=== PATIENT | male | born 1980 | race Caucasian/White ===

== ENCOUNTER 2023-07-25 12:07 | Outpatient (RCR) | payer OTHER, SELFPAY | END 2023-07-25 23:59 | disposition home or self-care (01) | LOC: RPT 12:07 | PROVIDERS: ATTENDING PHYSICIAN Neurological Surgery; FAMILY PHYSICIAN Family Medicine | DX: M43.22 Fusion of spine, cervical region (principal); M54.12 Radiculopathy, cervical region; Z73.6 Limitation of activities due to disability | CPT/HCPCS: 97010; 97110; 97140; 97162 ==

== ENCOUNTER 2023-07-27 14:07 | Outpatient (RCR) | payer OTHER, SELFPAY | END 2023-07-27 23:59 | disposition home or self-care (01) | LOC: RPT 14:07 | PROVIDERS: ATTENDING PHYSICIAN Neurological Surgery; FAMILY PHYSICIAN Family Medicine | DX: Z47.89 Encounter for other orthopedic aftercare (principal); Z98.1 Arthrodesis status | CPT/HCPCS: 97010; 97110 ==

== ENCOUNTER 2023-08-19 18:28 | Emergency (ER) | payer OTHER, SELFPAY ==
[2023-08-19 18:30] VITALS: BP 146/109
[2023-08-19 19:26] VITALS: BMI 22.7
--- NOTE | 2023-08-19 19:29 | EDRN ---
Pt is having more and more spasms above C3-C6 fusion area. Fusion done Feb 07, 2023 at [facility]. Pt says he is now getting shooting pains into his arms and hands, sometimes into his back or feet depending on how he moves his neck. Today pt had
burning in L side of his face. Most of the shooting pains are on L side of pt's body. Earlier, pt noted numbness/tingling in heel of L foot. Past 2-3 days spasms are getting worse and he has had cracking/popping in his neck. No new issues with
bowel and bladder.
[2023-08-19 19:35] VITALS: BP 131/98
[2023-08-19] MEDS: DELTASONE 50 MG PO (21:24)
--- NOTE | 2023-08-19 21:37 | ED.GENMED ---
History of Present Illness
General
Chief Complaint: Back Pain
Source: patient
Exam Limitations: none
Time Seen by Provider: 08/19/23 20:44
Travel History
Have you had any contact with someone who has COVID-19?: No
Do you have any symptoms of coronavirus? Fever > 100 degrees, chills, cough, shortness of breath, sore throat, loss of taste or smell, muscle aches, or headache?: No
History of Present Illness
History of Present Illness:
43-year-old male presents with intermittent neck spasms with occasional electric shock sensations down the arms and legs. In January of last year he had an anterior fusion of C3-C5. He started developing the symptoms about a month afterwards. He
is trying to get a hold of the surgeon but has been unable to. He denies a fever. He takes diazepam and oxycodone at home through his pain management doctor. Symptoms worsened over the past 2 to 3 days. He had an x-ray done as an outpatient
recently. No bowel or bladder dysfunction. No perianal anesthesia
Past History
Past History
ED Past Medical History: Hyperthyroidism, Psychiatric (Major depressive disorder for which he takes no medications), Other (Chronic neck pain, patient states she has had cervical stenosis and herniations) and Other (Recently diagnosed B12 deficiency)
ED Past Surgical History: Other ( partial amputation of the finger on his hand , Hernia repair)
Social History
Tobacco: Vaping
Alcohol: None (lives with his parents and his 3 children)
Drug: Former user and Marijuana
Personal: Single
Living: with family
Employment: Not employed (applying for disability)
Family History
Family History: Negative Diabetes or Hypertension
Phy Exam
Physical Exam
Physical Exam:
General: Well-appearing male no acute respiratory distress
HEENT: Normocephalic atraumatic
Neurologic exam: Alert conversing appropriately. Normal reflexes to the upper extremities. Good strength to the lower extremities. Normal gait.
Musculoskeletal exam: Cervical spine nontender. Good range of motion all extremities
Skin is warm no rash
Course
Orders/Labs/Results
Orders:
Orders
08/19/23 21:13
Prednisone [Deltasone] 50 mg PO NOW STA
Vital Signs
Initial and Last Documented VS:
Initial Vital Signs
Temp Pulse Resp BP Pulse Ox
98.1 F 110 16 146/109 100
08/19/23 18:30 08/19/23 18:30 08/19/23 18:30 08/19/23 18:30 08/19/23 18:30
Last Documented Vital Signs
Temp Pulse Resp BP Pulse Ox
98.1 F 92 16 131/98 100
08/19/23 18:30 08/19/23 19:35 08/19/23 19:35 08/19/23 19:35 08/19/23 19:35
MDM/Problems Addressed
Differential Diagnosis Includes:
Patient with intermittent neck spasm and paresthesias. No red flags to suggest cauda equina no fever to suggest infectious source. He symptoms are ongoing. No indication for any emergent MRI at this point. He is on diazepam and oxycodone at
home. Will prescribe a course of prednisone. He has an appoint with his family doctor in about 4 days.
*Critical Care Note
Total Time (30-74mins, 75-104mins- exclusive of procedures): Not Applicable
ED Attending Note
-
Portions of this chart may have been created with voice recognition software.� Occasional wrong word or��sound alike� substitutions may have occurred due to the inherent limitations of voice recognition software.
Discharge Plan
Departure
Patient Disposition: Home (Routine Discharge)
Date of Disposition: 08/19/23
Time of Disposition: 21:39
Patient with high blood pressure during this ER visit?: No
Discharge Problem:
Paresthesia
Instructions: Radiculopathy (DC)
Prescriptions:
New
prednisone 10 mg Tablet
See Rx Instructions .ROUTE .COMPLEX Qty: 30 0RF
Rx Instructions:
Take By Mouth:
40 mg daily x3 days, 30 mg daily x3 days,
20 mg daily x3 days, 10 mg daily x3 days.
No Action
diazepam [Valium] 5 mg Tablet
10 mg PO TID
oxycodone 20 mg Tablet
20 mg PO Q4H
multivitamin Tablet
1 tab PO DAILY
cyanocobalamin (vitamin B-12) 1,000 mcg Tablet
1,000 mcg PO Q48H
Referrals:
Jose Tompkins, DO [Family Provider] -
Activity Restrictions/Additional Instructions:
Continue with your muscle relaxer and pain medicine. Use steroid as directed. Continue to follow-up with your doctors as planned
Interventions
Interventions:
*Risk Screen - Suicide Last Done: 08/19/23 18:30
*General Assessment Last Done: 08/19/23 19:26
*Neglect/Abuse Screening Last Done: 08/19/23 18:30
ED- Fall Risk Assessment Last Done: 08/19/23 19:29
*ED COVID-19 Vaccine History Last Done: 08/19/23 18:30
ED-Musculoskeletal Assessment Last Done: 08/19/23 19:42
== END 2023-08-19 21:50 | disposition home or self-care (01) ==
LOC: EMR 18:28
PROVIDERS: EMERGENCY PHYSICIAN Emergency Medicine; FAMILY PHYSICIAN Family Medicine
DX: R20.2 Paresthesia of skin (principal); M62.838 Other muscle spasm; R20.0 Anesthesia of skin; E05.90 Thyrotoxicosis, unspecified without thyrotoxic crisis or storm; F32.9 Major depressive disorder, single episode, unspecified; M54.2 Cervicalgia; G89.29 Other chronic pain; E53.8 Deficiency of other specified B group vitamins; F17.290 Nicotine dependence, other tobacco product, uncomplicated; Z98.1 Arthrodesis status; Z88.6 Allergy status to analgesic agent; Z91.048 Other nonmedicinal substance allergy status
CPT/HCPCS: 99283

== ENCOUNTER → 2023-09-14 08:16 | Outpatient (REF) | payer OTHER, SELFPAY | LOC: MRI 08:16 | PROVIDERS: ATTENDING PHYSICIAN Family Medicine | DX: G95.9 Disease of spinal cord, unspecified (principal) | CPT/HCPCS: 72156; A9575 ==

== ENCOUNTER 2023-10-06 11:47 | Emergency (ER) | payer OTHER, SELFPAY ==
[2023-10-06 11:51] VITALS: BP 147/94
--- NOTE | 2023-10-06 13:49 | ED.GENMED ---
History of Present Illness
<Chetna Montero PA-C - Last Filed: 10/06/23 17:51>
General
Chief Complaint: Musculo-Skeletal Complaint
Source: patient
Exam Limitations: none
Time Seen by Provider: 10/06/23 13:49
Nursing documentation reviewed up to this point in time: agreed with
Travel History
Have you had any contact with someone who has COVID-19?: No
Do you have any symptoms of coronavirus? Fever > 100 degrees, chills, cough, shortness of breath, sore throat, loss of taste or smell, muscle aches, or headache?: No
History of Present Illness
History of Present Illness:
This is a 43 y/o male with a PMH of cervical herniated disc presenting to the ER today with concerns of severe neck pain for the past few months. Patient states that he had surgery for cervical herniated disc back in January 2023. Patient states
that this operation helped relieve his symptoms for period of time, however his symptoms started again and persisted, and his recent MRI revealed a new C2-C3 herniated disc. Patient follows with Dr. Aponte as his spinal pain management
specialist. Patient has a cervical spine injection scheduled for next week on Monday. Patient states that however his pain has gotten so severe, that he cannot sleep at night and he cannot wait till his appointment next week. Patient states
bilateral upper extremity paresthesias, these are constant. Patient denies decreased strength. Patient also has intermittent dizziness and intermittent headaches but no new neurologic symptoms.
Past History
<Chetna Montero PA-C - Last Filed: 10/06/23 17:51>
Past History
ED Past Medical History: Hyperthyroidism, Psychiatric (Major depressive disorder for which he takes no medications), Other (Chronic neck pain, patient states she has had cervical stenosis and herniations) and Other (Recently diagnosed B12 deficiency)
ED Past Surgical History: Other ( partial amputation of the finger on his hand , Hernia repair)
Social History
Tobacco: Vaping
Alcohol: None (lives with his parents and his 3 children)
Drug: Former user and Marijuana
Personal: Single
Living: with family
Employment: Not employed (applying for disability)
Family History
Family History: Negative Diabetes or Hypertension
Review of Systems
<Chetna Montero PA-C - Last Filed: 10/06/23 17:51>
Review of Systems
All Other Systems: ROS reviewed and negative except as documented in HPI and ROS
Phy Exam
<Chetna Montero PA-C - Last Filed: 10/06/23 17:51>
Physical Exam
Physical Exam:
Vitals: Patient is well appearing, in no acute distress
General: Patient is well appearing, no acute distress
Skin: Warm and dry, no rashes or lesions
Head: Normocephalic, atraumatic
Neck: No carotid bruits, trachea midline, no cervical radiculopathy
Cardiac: Regular rate and rhythm, no murmurs
Pulm: Normal respiratory effort
Musculoskeletal: Tenderness to palpation at the cervical spine and para cervical muscles. Full ROM of cervical spine.
Neuro: Sensation intact and equal in b/l upper extremities. Strength 5/5 in bilateral upper extremities. CN II-XII intact. No focal neurologic defeciets.
Course
<Chetna Montero PA-C - Last Filed: 10/06/23 17:51>
Orders/Labs/Results
Orders:
Orders
10/06/23 15:45
Ibuprofen [Motrin] 400 mg PO NOW STA
10/06/23 15:48
Prednisone [Deltasone] 60 mg PO NOW STA
Vital Signs
Initial and Last Documented VS:
Initial Vital Signs
Temp Pulse Resp BP Pulse Ox
98.7 F 99 18 147/94 100
10/06/23 11:51 10/06/23 11:51 10/06/23 11:51 10/06/23 11:51 10/06/23 11:51
Last Documented Vital Signs
Temp Pulse Resp BP Pulse Ox
98.7 F 79 18 145/90 98
10/06/23 11:51 10/06/23 16:00 10/06/23 16:00 10/06/23 16:00 10/06/23 16:00
<Marin Crook DO - Last Filed: 10/06/23 20:44>
Orders/Labs/Results
Orders:
Orders
10/06/23 15:45
Ibuprofen [Motrin] 400 mg PO NOW STA
10/06/23 15:48
Prednisone [Deltasone] 60 mg PO NOW STA
Vital Signs
Initial and Last Documented VS:
Initial Vital Signs
Temp Pulse Resp BP Pulse Ox
98.7 F 99 18 147/94 100
10/06/23 11:51 10/06/23 11:51 10/06/23 11:51 10/06/23 11:51 10/06/23 11:51
Last Documented Vital Signs
Temp Pulse Resp BP Pulse Ox
98.7 F 79 18 145/90 98
10/06/23 11:51 10/06/23 16:00 10/06/23 16:00 10/06/23 16:00 10/06/23 16:00
<Chetna Montero PA-C - Last Filed: 10/06/23 17:51>
MDM/Problems Addressed
Differential Diagnosis Includes:
ddx include cervical radiculopathy, cervical HNP, cervical muscle strain, carotid stenosis, occipital neuralgia, tension headache, complex migraine
MDM/Problems Addressed:
neck pain
radiculopathy
Chronic conditions affecting care:
cervical herniated disc, anxiety
Acute Exacerbation and/or Progression of Chronic Illness:
cervical herniated disc, anxiety
<ANGI Dobson Last Filed: 10/06/23 17:51>
*Pulse Oximetry
Patient hypoxic: no
*Critical Care Note
Total Time (30-74mins, 75-104mins- exclusive of procedures): Not Applicable
Data Reviewed
Review of Other/Old Records Reveals: Records (Reviewed ER physician documentation from 08/19/2023, 07/09/2023) and Discharge Summary (No discharge summaries in [facility] to review)
Source: patient and records
Prescriptions/Medications Considered But Not Given:
Considered CTA regarding patient neurological symptoms however patient has no new symptoms and had an unremarkable CTA back in April
<Chetna Montero PA-C - Last Filed: 10/06/23 17:51>
Patient Management
Escalation/DeEscalation of care consider admission/obs:
This is a 43 y/o male with a PMH of cervical herniated disc presenting to the ER today with concerns of severe neck pain for the past few months. Patient does have known cervical herniated disc and C2-3. Patient had surgery back in January 2023 for
final fusion of C3-C6. Patient patient has no new symptoms, but states that symptoms have gotten worse. Patient has unremarkable neurological exam. Patient has been seen here in the ER for very similar symptoms back in July, was treated a
short course of prednisone. We will have patient started on a short course of prednisone and we will try gabapentin for his neurologic symptoms. Patient agreement with plan. Patient is a follow-up appointment with his friction paint machine tender
next week. Patient medically stable for discharge.
ED Attending Note
<Chetna Montero PA-C - Last Filed: 10/06/23 17:51>
-
Portions of this chart may have been created with voice recognition software.� Occasional wrong word or��sound alike� substitutions may have occurred due to the inherent limitations of voice recognition software.
<Marin Crook DO - Last Filed: 10/06/23 20:44>
ED Attending Note
Patient seen and examined by attending physician: Yes
I performed the substantive portion of visit, reviewed & personally made and approve the management plan that is documented in note by myself or AVANI.: Yes
ED Attending Note:
43-year-old male with chronic neck pain. Has had previous fusion but also has had this disease at the C2 level. Patient just reports frustration that his body just does not seem to be responding well and in different positions he has different
symptoms. Has had pain but he has been taking oxycodone at home. He does have a spine surgeon as well as friction paint machine tender. Exam: Negative Anjel's. No focal motor deficits. No fever. Assessment plan: Continue outpatient meds.
Follow-up with pain. Add gabapentin and steroids
Discharge Plan
Departure
Patient Disposition: Home (Routine Discharge)
Date of Disposition: 10/06/23
Time of Disposition: 16:14
Patient with high blood pressure during this ER visit?: Yes
Condition: Good
Discharge Problem:
Cervical radiculopathy
Instructions: Radiculopathy (DC), Posterior Cervical Fusion (DC), BLOOD PRESSURE
Prescriptions:
New
gabapentin 100 mg capsule
100 mg PO BID Qty: 14 0RF
prednisone 10 mg Tablet
See Rx Instructions .ROUTE .COMPLEX Qty: 30 0RF
Rx Instructions:
Take By Mouth:
40 mg daily x3 days, 30 mg daily x3 days,
20 mg daily x3 days, 10 mg daily x3 days.
No Action
diazepam [Valium] 5 mg Tablet
10 mg PO TID
oxycodone 20 mg Tablet
20 mg PO Q4H
multivitamin Tablet
1 tab PO DAILY
cyanocobalamin (vitamin B-12) 1,000 mcg Tablet
1,000 mcg PO Q48H
prednisone 10 mg Tablet
See Rx Instructions .ROUTE .COMPLEX Qty: 30 0RF
Rx Instructions:
Take By Mouth:
40 mg daily x3 days, 30 mg daily x3 days,
20 mg daily x3 days, 10 mg daily x3 days.
Referrals:
Jose Tompkins, [Family Provider] -
Activity Restrictions/Additional Instructions:
We have sent Gabapentin to your pharmacy. Please take one tablet twice daily until follow up with your spinal pain specialist.
We also sent a course of steroids to your pharmacy. Please take 40 mg once daily x3 dailys, 30 mg once daily for x3 days, 20 mg once daily x3 days, and 10 once daily for 3 days.
Please return to the emergency department should you experience inability to ambulate, loss of your vision, syncopal episodes, severe headache, shortness of breath, chest pain, difficulty speaking, confusion, or other concerning signs or symptoms.
Please follow up with your spinal pain specialist and your primary care provider.
Interventions
Interventions:
*Risk Screen - Suicide Last Done: 10/06/23 11:51
*General Assessment Last Done: 10/06/23 11:51
*Neglect/Abuse Screening Last Done: 10/06/23 11:51
ED- Fall Risk Assessment Last Done: 10/06/23 16:19
*ED COVID-19 Vaccine History Last Done: 10/06/23 11:54
*Nursing Disposition Last Done: 10/06/23 16:46
ED-Musculoskeletal Assessment Last Done: 10/06/23 16:20
Discharge Date and Time
Discharge Date/Time: 10/06/23 17:04
Print Language: BENGALI
[2023-10-06 15:00] VITALS: BP 126/80
[2023-10-06] MEDS: DELTASONE 60 MG PO (15:57)
[2023-10-06 16:00] VITALS: BP 145/90
== END 2023-10-06 17:04 | disposition home or self-care (01) ==
LOC: EMR 11:47
PROVIDERS: EMERGENCY PHYSICIAN Emergency Medicine; FAMILY PHYSICIAN Family Medicine
DX: M54.12 Radiculopathy, cervical region (principal); E05.90 Thyrotoxicosis, unspecified without thyrotoxic crisis or storm; F17.290 Nicotine dependence, other tobacco product, uncomplicated
CPT/HCPCS: 99282

== ENCOUNTER 2023-10-06 18:50 | Emergency (ER) | payer OTHER, SELFPAY ==
[2023-10-06 19:09] VITALS: BP 139/99
--- NOTE | 2023-10-06 20:10 | ED.GENMED ---
History of Present Illness
General
Chief Complaint: Back Pain
Time Seen by Provider: 10/06/23 20:10
Travel History
Have you had any contact with someone who has COVID-19?: No
Do you have any symptoms of coronavirus? Fever > 100 degrees, chills, cough, shortness of breath, sore throat, loss of taste or smell, muscle aches, or headache?: No
History of Present Illness
History of Present Illness:
HPI: The patient was seen here earlier today. I did review the notes from earlier today�the patient had a herniated disc surgery in January [address] Aponte. He was given a short course of prednisone earlier today as well as
gabapentin. And he was to follow-up with pain management. He came back today by ambulance because after he woke back up, his heart was racing. He does not get his prescriptions filled yet.
EXAM:
GENERAL: Well appearing in no distress
HEENT: Moist oral mucosa
NECK: Decreased active range of motion of the cervical spine related to chronic pain
CARDIOVASCULAR: No murmurs, borderline tachycardic heart rate, regular rhythm, No chest wall tenderness
PULMONARY: No respiratory distress, breath sounds are clear and equal
NEUROLOGIC: Excellent strength all extremities, no coordination deficits, he has good strength in the median, ulnar, and radial nerve distributions
PSYCHIATRIC: Appropriate mental status, normal insight and judgement
EXTREMITIES: Nontender, no edema, moves all extremities equally
SKIN: No rash, no lesions
TIME OF INITIAL ENCOUNTER: 8:15 PM
NUMBER AND COMPLEXITY OF PROBLEMS ADDRESSED AT THE ENCOUNTER
� Chronic conditions affecting care: Chronic neck pain
� Acute Exacerbation and/or Progression of Chronic Illness: Acute exacerbation of chronic problem
� Differential Diagnosis includes: Cervical radiculopathy, worsening disc disease, worsening degenerative disease
AMOUNT AND/OR COMPLEXITY OF DATA TO BE REVIEWED AND ANALYZED
� I performed an independent evaluation of and my interpretation is:
EKG:
CT:
X-rays:
Laboratory Studies:
Other:
� Review of other/old records: I reviewed the MRI report from 09/14/2023�there was no MRI evidence for intramedullary signal abnormality or abnormal enhancement, prior discectomy/fusion is noted at C3-C6 small osteophytes and disc
herniations noted as well.
� Clinical information was obtained by an independent historian: None needed
� Prescriptions/Medications Considered but not given:
� Further testing considered but not performed:
RISK OF COMPLICATIONS AND/OR MORBIDITY OR MORTALITY OF PATIENT MANAGEMENT
� Social determinants of health affecting care: Lives at home
� Discussion with other providers:
� Escalation of care including admission/observation vs risk of discharge considered: This appears to be an acute exacerbation of a chronic problem. He is already seeing GI/pain management. It appears that he was supposed to be
getting a cervical epidural steroid injection this coming week. Will give a dose of Toradol. He is already on narcotic pain medication and was also given a prescription for gabapentin. He was prescribed steroids earlier today. His upper
extremity exam from a neurologic standpoint is unremarkable.
Past History
Past History
ED Past Medical History: Hyperthyroidism, Psychiatric (Major depressive disorder for which he takes no medications), Other (Chronic neck pain, patient states she has had cervical stenosis and herniations) and Other (Recently diagnosed B12 deficiency)
ED Past Surgical History: Other ( partial amputation of the finger on his hand , Hernia repair)
Social History
Tobacco: Vaping
Alcohol: None (lives with his parents and his 3 children)
Drug: Former user and Marijuana
Personal: Single
Living: with family
Employment: Not employed (applying for disability)
Family History
Family History: Negative Diabetes or Hypertension
Phy Exam
Physical Exam
Physical Exam:
See HPI
Course
Orders/Labs/Results
Orders:
Orders
10/06/23 20:20
Ketorolac [Toradol] 30 mg IM NOW STA
Vital Signs
Initial and Last Documented VS:
Initial Vital Signs
Temp Pulse Resp BP Pulse Ox
98.5 F 106 18 139/99 100
10/06/23 19:09 10/06/23 19:09 10/06/23 19:09 10/06/23 19:09 10/06/23 19:09
Last Documented Vital Signs
Temp Pulse Resp BP Pulse Ox
98.5 F 106 18 120/96 100
10/06/23 19:09 10/06/23 19:09 10/06/23 19:09 10/06/23 21:00 10/06/23 19:09
*Critical Care Note
Total Time (30-74mins, 75-104mins- exclusive of procedures): Not Applicable
ED Attending Note
-
Portions of this chart may have been created with voice recognition software.� Occasional wrong word or��sound alike� substitutions may have occurred due to the inherent limitations of voice recognition software.
Discharge Plan
Departure
Patient Disposition: Home (Routine Discharge)
Date of Disposition: 10/06/23
Time of Disposition: 20:25
Patient with high blood pressure during this ER visit?: Yes
Discharge Problem:
Cervical radiculopathy
Prescriptions:
No Action
diazepam [Valium] 5 mg Tablet
10 mg PO TID
oxycodone 20 mg Tablet
20 mg PO Q4H
multivitamin Tablet
1 tab PO DAILY
cyanocobalamin (vitamin B-12) 1,000 mcg Tablet
1,000 mcg PO Q48H
prednisone 10 mg Tablet
See Rx Instructions .ROUTE .COMPLEX Qty: 30 0RF
Rx Instructions:
Take By Mouth:
40 mg daily x3 days, 30 mg daily x3 days,
20 mg daily x3 days, 10 mg daily x3 days.
gabapentin 100 mg capsule
100 mg PO BID Qty: 14 0RF
prednisone 10 mg Tablet
See Rx Instructions .ROUTE .COMPLEX Qty: 30 0RF
Rx Instructions:
Take By Mouth:
40 mg daily x3 days, 30 mg daily x3 days,
20 mg daily x3 days, 10 mg daily x3 days.
Activity Restrictions/Additional Instructions:
We gave you a dose of Toradol today. I reviewed your MRI report from last month. Follow-up with your doctors through [facility]/pain management.
Interventions
Interventions:
*Risk Screen - Suicide Last Done: 10/06/23 19:09
*General Assessment Last Done: 10/06/23 19:09
*Neglect/Abuse Screening Last Done: 10/06/23 19:09
ED- Fall Risk Assessment Last Done: 10/06/23 20:29
*ED COVID-19 Vaccine History Last Done: 10/06/23 19:09
*Nursing Disposition Last Done: 10/06/23 21:10
ED-Musculoskeletal Assessment Last Done: 10/06/23 20:24
Discharge Date and Time
Discharge Date/Time: 10/06/23 21:11
Print Language: SAL[place]ORE[place]
[2023-10-06] MEDS: TORADOL 30 MG IM (20:25)
[2023-10-06 20:28] VITALS: BP 138/107
[2023-10-06 20:30] VITALS: BMI 22.9
[2023-10-06 20:51] VITALS: BP 133/97
[2023-10-06 21:00] VITALS: BP 120/96
== END 2023-10-06 21:11 | disposition home or self-care (01) ==
LOC: EMR 18:50
PROVIDERS: EMERGENCY PHYSICIAN Emergency Medicine; FAMILY PHYSICIAN Family Medicine
DX: M54.12 Radiculopathy, cervical region (principal); F17.290 Nicotine dependence, other tobacco product, uncomplicated
CPT/HCPCS: 99282; 96372

== ENCOUNTER 2023-11-03 13:46 | Emergency (ER) | payer OTHER, SELFPAY ==
[2023-11-03 13:48] VITALS: BP 154/99
[2023-11-03 15:52] VITALS: BMI 23.5
--- NOTE | 2023-11-03 16:13 | ED.GENMED ---
History of Present Illness
General
Chief Complaint: Musculo-Skeletal Complaint
Source: patient
Exam Limitations: none
Time Seen by Provider: 11/03/23 15:30
Nursing documentation reviewed up to this point in time: agreed with
Travel History
Have you had any contact with someone who has COVID-19?: No
Do you have any symptoms of coronavirus? Fever > 100 degrees, chills, cough, shortness of breath, sore throat, loss of taste or smell, muscle aches, or headache?: No
History of Present Illness
History of Present Illness:
43-year-old male presents to the ER for evaluation. Patient reports he has a history of C3-C6 fusion in January 2023 by at [facility]. He however reports he has had herniation around C2-C3 for months and he follows with pain
management for this pain and is on oxycodone 20 mg every 6 hours and diazepam. He reports he had an MRI 2 months ago because he had burning pain in his arms and legs and did see another neurosurgeon at his original neurosurgeon's office.
He has an appointment December 10 with his neurosurgeon. He reports ' they did not really do anything' about his pain after his MRI results.
Today he came to the ER because of continued pain but reports he bent his neck back prior to arrival to put eyedrops in and felt a pop and heard pop in his neck and then felt like his breathing was restricted when he was taking a deep.
That has since resolved.
MRI reviewed from September 14, 2023 no evidence of intramedullary signal abnormality or abnormal enhancement cervical spinal cord there is a previous injury discectomy and fusion at C3-4 C4-5 C5-6. There is a small vertebral endplate osteophyte at
C4-C5 causing mild spinal cord compression small central disc herniation C2-C3 small left central disc herniation C6/C7
Past History
Past History
ED Past Medical History: Hyperthyroidism, Psychiatric (Major depressive disorder for which he takes no medications), Other (Chronic neck pain, patient states she has had cervical stenosis and herniations) and Other (Recently diagnosed B12 deficiency)
ED Past Surgical History: Other ( partial amputation of the finger on his hand , Hernia repair)
Social History
Tobacco: Vaping
Alcohol: None (lives with his parents and his 3 children)
Drug: Former user and Marijuana
Personal: Single
Living: with family
Employment: Not employed (applying for disability)
Family History
Family History: Negative Diabetes or Hypertension
Phy Exam
General Physical Exam
General Presentation: no apparent distress
General age: appears stated age
General Skin: warm and dry
General Habitus: normal
General Mental: alert
General Hydration: appears well hydrated
Cardiovascular Exam
Cardiovascular Exam: regular rate/rhythm, no murmur and normal peripheral pulses
Pulmonary Exam
Pulmonary Exam: lungs clear and no respiratory distress
Neurological Exam
Neurological Exam: alert, oriented x3, no motor deficits and no sensory deficits
Musculoskeletal Exam
Musculoskeletal Exam: full ROM
Skin Exam
Skin Exam: normal color and warm/dry
Psychiatric Exam
Psychiatric Exam: normal mood/affect
Course
Vital Signs
Initial and Last Documented VS:
Initial Vital Signs
Temp Pulse Resp BP Pulse Ox
98.8 F 94 18 154/99 98
11/03/23 13:48 11/03/23 13:48 11/03/23 13:48 11/03/23 13:48 11/03/23 13:48
Last Documented Vital Signs
Temp Pulse Resp BP Pulse Ox
98.8 F 94 18 154/99 98
11/03/23 13:48 11/03/23 13:48 11/03/23 13:48 11/03/23 13:48 11/03/23 13:48
MDM/Problems Addressed
Differential Diagnosis Includes:
Not limited to radiculopathy,chronic pain
MDM/Problems Addressed:
Case reviewed with neurosurgery. I reviewed patient's recent MRI. Patient presented to the ER because he had an episode that he describes a feeling a pop in his neck when he extended his neck back and felt that his breathing was getting stuck
however this has since resolved. He has chronic upper and lower extremity pain but this is not new. His neurosurgeon is aware. He is scheduled to see his neurosurgeon December 10. He currently has no complaints of breathing issues. He on exam has
normal sensation to bilateral upper and lower extremities with normal strength. He is in no acute distress on exam. He is on chronic pain medication as documented of oxycodone and diazepam. Will give patient dose of Decadron here and DC on a
prescription of steroids for radicular pain. He is followed by pain management and is already on oxycodone and Valium. Patient as documented in addition also has history of substance abuse including heroine abuse. He has a history of 1
he is agreeable with this plan of care
Chronic conditions affecting care:
cervical fusion, chronic pain followed by pain management.
*Pulse Oximetry
Patient hypoxic: no
*Critical Care Note
Total Time (30-74mins, 75-104mins- exclusive of procedures): Not Applicable
Data Reviewed
Review of Other/Old Records Reveals: Other (Previous ED visits recent MRI)
Patient Management
Discussion with other providers: Rn Lpn Cna (neuro surg DR Da Silva )
ED Attending Note
-
Portions of this chart may have been created with voice recognition software.� Occasional wrong word or��sound alike� substitutions may have occurred due to the inherent limitations of voice recognition software.
Discharge Plan
Departure
Patient Disposition: Home (Routine Discharge)
Date of Disposition: 11/03/23
Time of Disposition: 17:22
Patient with high blood pressure during this ER visit?: Yes
Condition: Fair
Covid-19: Not Applicable
Discharge Problem:
Chronic pain
Instructions: Chronic pain
Prescriptions:
New
prednisone 10 mg Tablet
See Rx Instructions .ROUTE .COMPLEX Qty: 30 0RF
Rx Instructions:
Take By Mouth:
40 mg daily x3 days, 30 mg daily x3 days,
20 mg daily x3 days, 10 mg daily x3 days.
No Action
diazepam [Valium] 5 mg Tablet
10 mg PO TID
oxycodone 20 mg Tablet
20 mg PO Q4H
multivitamin Tablet
1 tab PO DAILY
cyanocobalamin (vitamin B-12) 1,000 mcg Tablet
1,000 mcg PO Q48H
prednisone 10 mg Tablet
See Rx Instructions .ROUTE .COMPLEX Qty: 30 0RF
Rx Instructions:
Take By Mouth:
40 mg daily x3 days, 30 mg daily x3 days,
20 mg daily x3 days, 10 mg daily x3 days.
gabapentin 100 mg capsule
100 mg PO BID Qty: 14 0RF
prednisone 10 mg Tablet
See Rx Instructions .ROUTE .COMPLEX Qty: 30 0RF
Rx Instructions:
Take By Mouth:
40 mg daily x3 days, 30 mg daily x3 days,
20 mg daily x3 days, 10 mg daily x3 days.
Referrals:
Jose Tompkins, [Family Provider] -
Activity Restrictions/Additional Instructions:
Follow-up with your neurosurgeon as scheduled. A prescription for steroids was sent to your pharmacy. You are given 1 dose in your muscle here in the ER start this prescription tomorrow. Return if any worsening of symptoms
Interventions
Interventions:
*Risk Screen - Suicide Last Done: 11/03/23 13:48
*General Assessment Last Done: 11/03/23 13:48
*Neglect/Abuse Screening Last Done: 11/03/23 13:48
ED- Fall Risk Assessment Last Done: 11/03/23 15:54
*ED COVID-19 Vaccine History Last Done: 11/03/23 15:56
ED-Musculoskeletal Assessment Last Done: 11/03/23 15:52
Discharge Date and Time
Print Language: SLOVENIAN
[2023-11-03] MEDS: DECADRON 10 MG IM (18:05)
== END 2023-11-03 18:28 | disposition home or self-care (01) ==
LOC: EMR 13:46
PROVIDERS: EMERGENCY PHYSICIAN Emergency Medicine; FAMILY PHYSICIAN Family Medicine
DX: G89.29 Other chronic pain (principal); M79.605 Pain in left leg; M79.604 Pain in right leg; M79.602 Pain in left arm; M79.601 Pain in right arm; F17.290 Nicotine dependence, other tobacco product, uncomplicated
CPT/HCPCS: 99284; 96372

== ENCOUNTER 2023-11-09 13:47 | Emergency (ER) | payer OTHER, SELFPAY ==
[2023-11-09 13:52] VITALS: BP 135/97
[2023-11-09 16:18] VITALS: BP 136/98
[2023-11-09 16:19] VITALS: BP 136/98
--- NOTE | 2023-11-09 23:47 | ED.MUSCINJ ---
HPI-Injury
General
Chief Complaint: Musculo-Skeletal Complaint
Source: patient
Exam Limitations: none
Time Seen by Provider: 11/09/23 15:47
Nursing documentation reviewed up to this point in time: agreed with
Travel History
Have you had any contact with someone who has COVID-19?: No
Do you have any symptoms of coronavirus? Fever > 100 degrees, chills, cough, shortness of breath, sore throat, loss of taste or smell, muscle aches, or headache?: No
History of Present Illness-Injury
Initial Injury comments:
Patient to ED with complaint of neck spasms. History of chronic neck pain, follows with pain management. States his insurance is no longer accepted by his pain management group and he has not been accepted by another. Requesting muscle relaxant.
No history of recent trauma. No changes to his pain. Brought self to ED for eval.
Past History
Past History
ED Past Medical History: Hyperthyroidism, Psychiatric (Major depressive disorder for which he takes no medications), Other (Chronic neck pain, patient states she has had cervical stenosis and herniations) and Other (Recently diagnosed B12 deficiency)
ED Past Surgical History: Other ( partial amputation of the finger on his hand , Hernia repair)
Social History
Tobacco: Vaping
Alcohol: None (lives with his parents and his 3 children)
Drug: Former user and Marijuana
Personal: Single
Living: with family
Employment: Not employed (applying for disability)
Family History
Family History: Negative Diabetes or Hypertension
Review of Systems
Review of Systems
Allergies reviewed?: Yes
All Other Systems: ROS reviewed and negative except as documented in HPI and ROS
Constitutional: Reports no symptoms
EENT: Reports no symptoms
Respiratory: Reports no symptoms
Cardiac: Reports no symptoms
ABD/GI: Reports no symptoms
Musculoskeletal: Reports muscle pain (muscle spasms to neck)
Skin: Reports no symptoms
Neurological: Reports other (cervical radicular pain to bilateral shoulders and upper extremities (chronic))
Psychiatric: Reports no symptoms
Musculoskeletal Injury Exam
Musculoskeletal Injury Exam
Posterior Neck:
Pain with Movement?: Moderate (chronic, unchanged)
Tender to palpation?: None
Soft tissue swelling?: None
External deformity and angulation?: None
Joint effusion?: None
Contusion?: None
Hematoma-local bleeding into tissue?: None
Strain- Sprain- Tear (Connective tissue injury)?: None
Crepitus with movement?: No
Joint instability?: No
Malalignment/deformity?: No
Range of motion: Full
Distal skin color and temperature: normal-warm & good color
Capillary Refill: normal
Normal distal neurovascular exam?: Yes
Phy Exam
General Physical Exam
General Presentation: well appearing and no apparent distress
General age: appears stated age
General Skin: warm and dry
General Habitus: normal
General Mental: alert
General Hydration: appears well hydrated
Neurological Exam
Neurological Exam: alert and oriented x3
Musculoskeletal Exam
Musculoskeletal Exam: full ROM, neuro vasc intact and other (Chronic neck pain. No changes to pain. Has not had valium for muscle spasms since beginning of october. Requesting muscle relaxant for spasms)
Skin Exam
Skin Exam: normal color, warm/dry and no rash
Psychiatric Exam
Psychiatric Exam: normal mood/affect
*Critical Care Note
Total Time (30-74mins, 75-104mins- exclusive of procedures): Not Applicable
Update Note
Update Note:
Patient to ED requesting medication for neck muscle spasms. Chronic pain to neck. No new pain, no new symptoms. Taking valium in the past. Has not had valium in more than 3 weeks. WIll give 2 day rx for flexeril. He will follow up with PCP,
obtain new pain management provider.
ED Attending Note
-
Portions of this chart may have been created with voice recognition software.� Occasional wrong word or��sound alike� substitutions may have occurred due to the inherent limitations of voice recognition software.
Discharge Plan
Departure
Patient Disposition: Home (Routine Discharge)
Date of Disposition: 11/09/23
Time of Disposition: 15:59
Patient with high blood pressure during this ER visit?: No
Condition: Good
Covid-19: Not Applicable
Discharge Problem:
Chronic pain
Instructions: Radiculopathy (DC), Muscle Spasm ED
Prescriptions:
New
cyclobenzaprine 10 mg tablet
10 mg PO TID PRN (Reason: muscle spasms) Qty: 6 0RF
No Action
diazepam [Valium] 5 mg Tablet
10 mg PO TID
oxycodone 20 mg Tablet
20 mg PO Q4H
multivitamin Tablet
1 tab PO DAILY
cyanocobalamin (vitamin B-12) 1,000 mcg Tablet
1,000 mcg PO Q48H
prednisone 10 mg Tablet
See Rx Instructions .ROUTE .COMPLEX Qty: 30 0RF
Rx Instructions:
Take By Mouth:
40 mg daily x3 days, 30 mg daily x3 days,
20 mg daily x3 days, 10 mg daily x3 days.
gabapentin 100 mg capsule
100 mg PO BID Qty: 14 0RF
prednisone 10 mg Tablet
See Rx Instructions .ROUTE .COMPLEX Qty: 30 0RF
Rx Instructions:
Take By Mouth:
40 mg daily x3 days, 30 mg daily x3 days,
20 mg daily x3 days, 10 mg daily x3 days.
prednisone 10 mg Tablet
See Rx Instructions .ROUTE .COMPLEX Qty: 30 0RF
Rx Instructions:
Take By Mouth:
40 mg daily x3 days, 30 mg daily x3 days,
20 mg daily x3 days, 10 mg daily x3 days.
Activity Restrictions/Additional Instructions:
Follow up with your family doctor in the AM
Interventions
Interventions:
*Risk Screen - Suicide Last Done: 11/09/23 13:54
*General Assessment Last Done: 11/09/23 13:54
*Neglect/Abuse Screening Last Done: 11/09/23 13:54
*Nursing Disposition Last Done: 11/09/23 16:19
ED-Musculoskeletal Assessment Last Done: 11/09/23 15:06
Discharge Date and Time
Discharge Date/Time: 11/09/23 16:20
Print Language: TRINIDADIAN
== END 2023-11-09 16:20 | disposition home or self-care (01) ==
LOC: EMR 13:47
PROVIDERS: EMERGENCY PHYSICIAN Emergency Medicine; FAMILY PHYSICIAN Family Medicine
DX: G89.29 Other chronic pain (principal); E05.90 Thyrotoxicosis, unspecified without thyrotoxic crisis or storm; F32.9 Major depressive disorder, single episode, unspecified; E53.8 Deficiency of other specified B group vitamins
CPT/HCPCS: 99282

== ENCOUNTER 2024-01-06 09:28 | Emergency (ER) | payer MEDICARE, SELFPAY ==
[2024-01-06 09:40] VITALS: BP 158/100
[2024-01-06 10:49] VITALS: BMI 23.6
[2024-01-06 10:52] VITALS: BP 125/108
--- NOTE | 2024-01-06 11:02 | ED.GENMED ---
History of Present Illness
General
Chief Complaint: Abdominal Pain
Source: patient
Exam Limitations: none
Time Seen by Provider: 01/06/24 10:59
History of Present Illness
History of Present Illness:
See MDM
Past History
Past History
ED Past Medical History: Hyperthyroidism, Psychiatric (Major depressive disorder for which he takes no medications), Other (Chronic neck pain, patient states she has had cervical stenosis and herniations) and Other (Recently diagnosed B12 deficiency)
ED Past Surgical History: Other ( partial amputation of the finger on his hand , Hernia repair)
Social History
Tobacco: Vaping
Alcohol: None (lives with his parents and his 3 children)
Drug: Former user and Marijuana
Personal: Single
Living: with family
Employment: Not employed (applying for disability)
Family History
Family History: Negative Diabetes or Hypertension
Phy Exam
Physical Exam
Physical Exam:
See MDM
Course
Orders/Labs/Results
Orders:
Orders
01/06/24 10:58
Complete Blood Count/With Diff Urgent
Comprehensive Metabolic Panel Urgent
Lipase Urgent
01/06/24 11:02
CT Abd/pelvis W Iv Cont Urgent
Comment:
Reason For Exam: vomiting, RLQ pain
0.9% Sodium Chloride 1000 ml [Nss] 1,000 ml IV BOLUS
Ketorolac [Toradol] 30 mg IV NOW STA
Ondansetron Injectable [Zofran] 4 mg IV NOW STA
01/06/24 12:04
Urinalysis Reflex To Culture Urgent
Date Specimen was Collected: 01/06/24
Time Specimen was Collected: 12:03
Abnormal Lab Results
01/06/24
10:58
RBC 4.66 L 10^6/uL
(4.70-6.10)
MPV 11.1 H fL
(7.4-10.4)
Absolute Neuts (auto) 7.6 H 10^3/uL
(1.4-6.5)
Neutrophils % 77.1 H %
(42.2-75.2)
Lymphocytes % 15.6 L %
(20.5-51.1)
ALT 54 H U/L
(0-50)
01/06/24 10:58
01/06/24 10:58
Vital Signs
Initial and Last Documented VS:
Initial Vital Signs
Temp Pulse Resp BP Pulse Ox
98.1 F 84 20 158/100 100
01/06/24 09:40 01/06/24 09:40 01/06/24 09:40 01/06/24 09:40 01/06/24 09:40
Last Documented Vital Signs
Temp Pulse Resp BP Pulse Ox
98.6 F 80 18 148/92 99
01/06/24 10:52 01/06/24 12:07 01/06/24 12:07 01/06/24 12:07 01/06/24 12:07
MDM/Problems Addressed
Differential Diagnosis Includes:
HPI and MDM Narrative:
43-year-old male presenting with right lower quadrant pain, nausea and vomiting. This occurred when he woke up. On arrival, patient thinks symptoms are somewhat better.
Patient is on chronic pain medicine from his prior cervical surgeries. However, he denies a prior history of constipation
Given his symptoms and the tenderness on exam, will obtain CT to rule out acute appendicitis
Physical exam
General: Mildly uncomfortable
HEENT: protecting airway
Neck: appears supple
CV: No evidence of cyanosis
Resp: No accessory muscle use
Abd: Non-distended. Mild tenderness to right lower quadrant without localized rebound
Extremities: No deformities
Neuro: alert
Psych: Normal affect
Skin: Intact
Problems Addressed including Acute and Chronic Conditions affecting care:
1. Abdominal pain with nausea and vomiting
Acuity: acute
Prognosis: stable
Details: Will obtain CT to rule out acute appendicitis. Will give Toradol and Zofran
Updates
CT consistent with passed right kidney stone. Bladder stone noted. When examined the patient, he just urinated the stone and feels much better. We did discuss the same size stone in the left kidney and discussed outpatient urology follow-up. We
discussed incidental constipation and MiraLAX for the next few days.
Differential Diagnosis (but not limited to): Acute appendicitis, colitis, constipation, kidney stone
Testing considered: Urinalysis but he denies any symptoms
Drug therapy (if applicable): OTC meds, please see d/c instruction regarding Rx drugs
Amount and/or Complexity of Data Reviewed
Clinical info obtained from: Patient
External data reviewed: N/A
Labs I independently reviewed (but not limited to): White blood cell count normal
Radiology: The CT scan was personally and independently reviewed. In addition, official CT report reviewed.
Pulse Ox: not hypoxic
EKG independently reviewed: N/A
Clothing Busheler: N/A
Critical Care: N/A
Risk of Complication:
Social Determinants of health: Good social support
Discussed with other providers: N/A
Escalation of Care includes Admit/Obs: After being observed in the Emergency Department, pt stable for discharge.
Occasional wrong word or 'sound a like' substitutions may have occurred due to the inherent limitations of voice recognition software. Read the chart carefully and recognize, using context, where substitutions have occurred.
*Critical Care Note
Total Time (30-74mins, 75-104mins- exclusive of procedures): Not Applicable
ED Attending Note
-
Portions of this chart may have been created with voice recognition software.� Occasional wrong word or��sound alike� substitutions may have occurred due to the inherent limitations of voice recognition software.
Discharge Plan
Departure
Patient Disposition: Home (Routine Discharge)
Date of Disposition: 01/06/24
Time of Disposition: 12:12
Patient with high blood pressure during this ER visit?: Yes
Discharge Problem:
Kidney stone on right side
Prescriptions:
No Action
diazepam [Valium] 5 mg Tablet
5 mg PO TID
oxycodone 20 mg Tablet
20 mg PO Q6H PRN (Reason: pain)
multivitamin Tablet
1 tab PO DAILY
cyanocobalamin (vitamin B-12) 1,000 mcg Tablet
1,000 mcg PO Q48H
Referrals:
Ousmane Crocker MD [Active] -
Jose Topmkins DO [Family Provider] -
Activity Restrictions/Additional Instructions:
As we discussed, your pain was related to a kidney stone that you just passed. You have the same size kidney stone on the left. Please follow-up with urologist as an outpatient. Please take MiraLAX daily for the next few days to help with the
large amount of stool seen on the CT scan.
Please return for any worsening symptoms.
You may return at any time if you have further concerns.
Please follow up with your doctor at the first available appointment, preferably this week.
Thank you for choosing [facility].
Interventions
Interventions:
*Risk Screen - Suicide Last Done: 01/06/24 09:43
*General Assessment Last Done: 01/06/24 09:43
*Neglect/Abuse Screening Last Done: 01/06/24 09:43
*ED COVID-19 Vaccine History Last Done: 01/06/24 09:43
XM-Tywxsn-Xuzliurwtd Assessment Last Done: 01/06/24 10:59
Discharge Date and Time
Print Language: MONGOLIAN
[2024-01-06 11:07] LABS: % Basophils 0.2 % (0-2); % Eosinophils 0.6 % (0-6); % Immature Granulocytes 0.4 % (0-0.5); % Lymphocytes 15.6 % (20.5-51.1); % Monocytes 6.1 % (1.7-9.3); % Neutrophils 77.1 % (42.2-75.2); Absolute Eosinophils 0.1 10^3/uL (0-0.7); Absolute Lymphocytes 1.5 10^3/uL (1.2-3.4); Absolute Monocytes 0.6 10^3/uL (0.1-0.6); Absolute Neutrophils 7.6 10^3/uL (1.4-6.5); Hematocrit 39.7 % (39.0-52.0); Mean Corp Hgb Conc. 35.3 g/dL (33.0-37.0); Mean Corpuscular Volume 85.2 fL (80.0-94.0); Mean Platelet Volume 11.1 fL (7.4-10.4); Nucleated Red Blood Cells % 0 % (-); Platelet Count 243 10^3/uL (130-400); Red Blood Cell Count 4.66 10^6/uL (4.70-6.10); Red Cell Dist. Width 12.3 % (11.5-14.5); White Blood Cell Count 9.8 10^3/uL (4.8-10.8)
[2024-01-06] MEDS: NSS 1000 IV (11:13)
[2024-01-06] MEDS: TORADOL 30 MG IV (11:14)
[2024-01-06] MEDS: ZOFRAN 4 MG IV (11:17)
[2024-01-06 11:20] LABS: ALT (SGPT) 54 U/L (0-50); AST (SGOT) 44 U/L (17-59); Albumin 4.5 g/dl (3.5-5.0); Alkaline Phosphatase 94 U/L (38-126); Blood Urea Nitrogen 9 mg/dl (9-20); Calcium 10.1 mg/dl (8.4-10.2); Carbon Dioxide 30 mmol/L (22-30); Chloride 102 mmol/L (98-107); Estimated Creatinine Clearance 110 ml/min; Glucose 99 mg/dl (70-99); Lipase 33 U/L (23-300); Sodium 140 mmol/L (135-145); Total Bilirubin 0.9 mg/dl (0.2-1.3); Total Protein 7.1 g/dl (6.3-8.2); eGFR > 60.00
[2024-01-06 12:07] VITALS: BP 148/92
[2024-01-06 12:12] LABS: Urine Albumin Negative (Neg - Trace); Urine Bilirubin Negative (Negative); Urine Character Clear (Clear); Urine Color Yellow; Urine Glucose Negative (Negative); Urine Ketone Negative (Negative); Urine Leukocyte Negative (Negative); Urine Nitrite Negative (Negative); Urine Occult Blood 4+ (Negative); Urine Specific Gravity 1.005 (<1.030); Urine Urobilinogen Negative (Neg - 1+)
[2024-01-06 12:42] LABS: Urine Bacteria Few (Negative); Urine Red Blood Cell 26-30 /HPF (0-2); Urine White Cell 0-2 /HPF (0-5)
== END 2024-01-06 12:36 | disposition home or self-care (01) ==
LOC: EMR 09:28
PROVIDERS: EMERGENCY PHYSICIAN Student in an Organized Health Care Education/Training Program; FAMILY PHYSICIAN Family Medicine
DX: N20.0 Calculus of kidney (principal); F17.290 Nicotine dependence, other tobacco product, uncomplicated; R03.0 Elevated blood-pressure reading, without diagnosis of hypertension
CPT/HCPCS: 99285; 96374; 96375; 74177; 80053; 81003; 81015; 83690; 85025; Q9967

== ENCOUNTER → 2024-03-16 07:31 | Outpatient (REF) | payer MEDICARE, OTHER, SELFPAY | LOC: MRI 3T 07:31 | PROVIDERS: ATTENDING PHYSICIAN Anesthesiology Pain Medicine; FAMILY PHYSICIAN Family Medicine | DX: M54.16 Radiculopathy, lumbar region (principal); M54.50 Low back pain, unspecified | CPT/HCPCS: 72148 ==

== ENCOUNTER 2024-03-28 19:58 | Emergency (ER) | payer MEDICARE, OTHER, SELFPAY ==
[2024-03-28 20:00] VITALS: BP 150/114
--- NOTE | 2024-03-28 21:06 | ED.GENMED ---
History of Present Illness
General
Chief Complaint: Musculo-Skeletal Complaint
Source: patient
Time Seen by Provider: 03/28/24 20:54
History of Present Illness
History of Present Illness:
44-year-old male with past medical history of chronic neck pain presenting to the emergency department for an acute on chronic exacerbation of his pain. Patient states that he was recently discharged from his pain medicine practice and has been
getting his pain medicine through her primary care provider now. Currently is awaiting an appointment with his spinal surgeon which is not until May and is in the process of obtaining a new pain specialist. Patient denies any fevers, new
injuries or any new symptoms he just states his pain has been gradually worsening over the last 2 days. Patient has noted history of substance abuse however denies any IV drug abuse and is currently not using any illicit substances.
Past History
Past History
ED Past Medical History: Hyperthyroidism, Psychiatric (Major depressive disorder for which he takes no medications), Other (Chronic neck pain, patient states she has had cervical stenosis and herniations) and Other (Recently diagnosed B12 deficiency)
ED Past Surgical History: Other ( partial amputation of the finger on his hand , Hernia repair)
Social History
Tobacco: Vaping
Alcohol: None (lives with his parents and his 3 children)
Drug: Former user and Marijuana
Personal: Single
Living: with family
Employment: Not employed (applying for disability)
Family History
Family History: Negative Diabetes or Hypertension
Review of Systems
Review of Systems
All Other Systems: ROS reviewed and negative except as documented in HPI and ROS
Phy Exam
Physical Exam
Physical Exam:
GENERAL: Alert , in no apparent distress
EYE: conjunctiva clear
Head: Normocephalic atraumatic
NECK: Supple, limited range of motion secondary to pain, no focal tenderness
ENT: mmm.
LUNGS: no acute respiratory distress
NEUROLOGICAL: Alert and oriented, biceps/triceps/brachioradialis deep tendon reflexes intact and equal bilateral upper extremities, sensation grossly intact, 5 out of 5 strength bilateral upper extremities
SKIN: Warm and dry, skin intact.
MUSCULOSKELETAL: well perfused.
PSYCH: Normal and appropriate interaction.
Scores
Heart Failure Risk
Heart Failure Risk Score: Not Applicable
Heart Score for Chest Pain Patients
STEMI patient?: Not applicable
Withdrawal Assessment of Alcohol
Withdrawal Assessment Completed?: Not applicable
Course
Orders/Labs/Results
Orders:
Orders
03/28/24 21:06
Dexamethasone Sod Phosphate [Decadron] 10 mg IM NOW STA
Vital Signs
Initial and Last Documented VS:
Initial Vital Signs
Temp Pulse Resp BP Pulse Ox
97.8 F 98 18 150/114 100
03/28/24 20:00 03/28/24 20:00 03/28/24 20:00 03/28/24 20:00 03/28/24 20:00
Last Documented Vital Signs
Temp Pulse Resp BP Pulse Ox
97.8 F 98 18 150/114 100
03/28/24 20:00 03/28/24 20:00 03/28/24 20:00 03/28/24 20:00 03/28/24 20:00
MDM/Problems Addressed
Differential Diagnosis Includes:
Acute on chronic pain exacerbation, spinal stenosis, disc herniation, nerve, noted history for substance abuse however denies IV drug abuse or less suspicion for infectious etiology
MDM/Problems Addressed:
44-year-old male presenting emergency department for evaluation of acute on chronic neck pain. No focal neurologic symptoms nor infectious symptoms. Takes Valium as needed for muscle spasm and oxycodone 20 mg daily. No focal findings on exam.
Will treat with Decadron here and a Medrol Dosepak for home. Patient had an MRI done here in August of this year which showed the following
IMPRESSION:
1. No MRI evidence for intramedullary signal abnormality or abnormal enhancement in the cervical spinal cord.
2. Previous anterior discectomy and fusion at C3/C4, C4/C5, and C5/C6.
3. Small vertebral body endplate osteophyte at C4/C5 causing mild spinal cord compression.
4. Small central disc herniation at C2/C3.
5. Small left central disc herniation at C6/C7.
Advised patient follow-up with primary care provider. Aware of return precautions to the ER.
*Pulse Oximetry
Patient hypoxic: no
*Critical Care Note
Total Time (30-74mins, 75-104mins- exclusive of procedures): Not Applicable
Data Reviewed
Review of Other/Old Records Reveals: Labs, Records and Radiology Studies
ED Attending Note
-
Portions of this chart may have been created with voice recognition software.� Occasional wrong word or��sound alike� substitutions may have occurred due to the inherent limitations of voice recognition software.
Discharge Plan
Departure
Patient Disposition: Home (Routine Discharge)
Date of Disposition: 03/28/24
Time of Disposition: 21:06
Patient with high blood pressure during this ER visit?: Yes
Discharge Problem:
Cervicalgia, Chronic pain
Instructions: Neck pain
Prescriptions:
New
methylprednisolone [Medrol (Hubert)] 4 mg tablets,dose pack
4 mg PO DIRECTED Qty: 21 0RF
No Action
diazepam [Valium] 5 mg Tablet
5 mg PO TID
oxycodone 20 mg Tablet
20 mg PO Q6H PRN (Reason: pain)
multivitamin Tablet
1 tab PO DAILY
cyanocobalamin (vitamin B-12) 1,000 mcg Tablet
1,000 mcg PO Q48H
Referrals:
Jose Tompkins, DO [Family Provider] -
Interventions
Interventions:
*Risk Screen - Suicide Last Done: 03/28/24 19:59
*General Assessment Last Done: 03/28/24 20:02
*Neglect/Abuse Screening Last Done: 03/28/24 20:02
ED- Fall Risk Assessment Last Done: 03/28/24 22:11
*Nursing Disposition Last Done: 03/28/24 22:11
ED-Musculoskeletal Assessment Last Done: 03/28/24 21:21
Discharge Date and Time
Discharge Date/Time: 03/28/24 22:12
Print Language: HUNGARIAN
[2024-03-28] MEDS: DECADRON 10 MG IM (21:15)
== END 2024-03-28 22:12 | disposition home or self-care (01) ==
LOC: EMR 19:58
PROVIDERS: EMERGENCY PHYSICIAN Student in an Organized Health Care Education/Training Program; FAMILY PHYSICIAN Family Medicine
DX: G89.29 Other chronic pain (principal); M54.2 Cervicalgia; E05.90 Thyrotoxicosis, unspecified without thyrotoxic crisis or storm; F32.9 Major depressive disorder, single episode, unspecified; E53.8 Deficiency of other specified B group vitamins; F17.290 Nicotine dependence, other tobacco product, uncomplicated
CPT/HCPCS: 99282; 96372

== ENCOUNTER 2024-05-01 03:13 | Emergency (ER) | payer MEDICARE, OTHER, SELFPAY ==
--- NOTE | 2024-05-01 03:17 | ED.MUSCINJ ---
HPI-Injury
<SALVADOR Weller - Last Filed: 05/01/24 05:53>
General
Chief Complaint: Musculo-Skeletal Complaint
Source: patient
Time Seen by Provider: 05/01/24 03:16
Nursing documentation reviewed up to this point in time: agreed with except (no lumbar radiculopathy )
History of Present Illness-Injury
Initial Injury comments:
A 44-year-old male with a past medical of substance abuse, chronic cervicalgia, MDD, presents to the emergency room for acute on chronic neck pain. He states 'the back of my head feels like it has been hit with a sledgehammer '. Patient states
this is a chronic issue which has been managed with outpatient pain management and with prior C2-C3, C3-C4, C5-C6 cervical spinal fusion. He states that he ran out of his oxycodone 2 days ago. He currently has been getting his medications through
his PCP, Dr. Jose Elizalde, until he can attend pain management appointment on May 13. He has follow-ups with spinal surgeon this May 03 and follow-up with PCP on May 04.He denies lumbar pain, upper extremity
weakness, lower extremity weakness, abdominal pain.
Past History
<SALVADOR Weller - Last Filed: 05/01/24 05:53>
Past History
ED Past Medical History: Hyperthyroidism, Psychiatric (Major depressive disorder for which he takes no medications), Other (Chronic neck pain, patient states she has had cervical stenosis and herniations) and Other (Recently diagnosed B12 deficiency)
ED Past Surgical History: Other ( partial amputation of the finger on his hand , Hernia repair)
Social History
Tobacco: Vaping
Alcohol: None (lives with his parents and his 3 children)
Drug: Former user and Marijuana
Personal: Single
Living: with family
Employment: Not employed (applying for disability)
Family History
Family History: Negative Diabetes or Hypertension
Review of Systems
<SALVADOR Weller - Last Filed: 05/01/24 05:53>
Review of Systems
Allergies reviewed?: Yes
Phy Exam
<SALVADOR Weller - Last Filed: 05/01/24 05:53>
General Physical Exam
General Presentation: well appearing and no apparent distress
General age: appears stated age
General Skin: warm and dry
General Habitus: normal
General Mental: alert
General Hydration: appears well hydrated
Eye Exam
Eye Exam: PERRL
Cardiovascular Exam
Cardiovascular Exam: regular rate/rhythm, no edema, no gallop, no murmur and normal peripheral pulses
Pulmonary Exam
Pulmonary Exam: lungs clear, no respiratory distress, no rales, no crackles, no rhonchi, no wheezing and no cough
Gastrointestinal Exam
Gastrointestinal Exam: non tender, soft and non distended
Neurological Exam
Neurological Exam: alert and oriented x3
Musculoskeletal Exam
Musculoskeletal Exam: neuro vasc intact and other (Limited cervical range of motion. Cervical spinal process tenderness C1-C5. Cervical paraspinal muscles are tight and tender to palpation.)
Skin Exam
Skin Exam: normal color, warm/dry and no rash
Psychiatric Exam
Psychiatric Exam: other (Patient is pleasant but verbally frustrated)
Injury Course
<SALVADOR Weller - Last Filed: 05/01/24 05:53>
Orders/Labs/Results
Orders:
Orders
05/01/24 04:02
Cyclobenzaprine HCl [Flexeril] 10 mg PO NOW STA
Dexamethasone Pf [Decadron] 10 mg PO NOW STA
05/01/24 04:27
Diazepam [Valium] 5 mg .ROUTE .STK-MED ONE
05/01/24 04:28
Diazepam [Valium] 5 mg PO NOW STA
05/01/24 05:02
Oxycodone [Roxicodone] 20 mg PO NOW STA
<Rubén Buckley DO - Last Filed: 05/01/24 05:39>
Orders/Labs/Results
Orders:
Orders
05/01/24 04:02
Cyclobenzaprine HCl [Flexeril] 10 mg PO NOW STA
Dexamethasone Pf [Decadron] 10 mg PO NOW STA
05/01/24 04:27
Diazepam [Valium] 5 mg .ROUTE .STK-MED ONE
05/01/24 04:28
Diazepam [Valium] 5 mg PO NOW STA
05/01/24 05:02
Oxycodone [Roxicodone] 20 mg PO NOW STA
<ST JaneeME - Last Filed: 05/01/24 05:53>
MDM/Problems Addressed
Differential Diagnosis Includes:
Acute on chronic cervicalgia , cervical muscle spasm, cervical herniated disc
<SALVADOR Weller - Last Filed: 05/01/24 05:53>
*Critical Care Note
Total Time (30-74mins, 75-104mins- exclusive of procedures): Not Applicable
<SALVADOR Weller - Last Filed: 05/01/24 05:53>
Update Note
Update Note:
05/01/2024 0502 AM: ST FINNEY: Just spoke with patient. Patient states pain has not changed since receiving diazepam. Will talk with Dr. Buckley about further pain management.
ED Attending Note
<SALVADOR Weller - Last Filed: 05/01/24 05:53>
-
Portions of this chart may have been created with voice recognition software.� Occasional wrong word or��sound alike� substitutions may have occurred due to the inherent limitations of voice recognition software.
<Rubén Buckley, DO - Last Filed: 05/01/24 05:39>
ED Attending Note
Patient seen and examined by attending physician: Yes
I performed the substantive portion of visit, reviewed & personally made and approve the management plan that is documented in note by myself or AVANI.: Yes
ED Attending Note:
Pleasant 44-year-old male with a history of chronic pain under the care of pain management and family doctor presents to the emergency department with spasms and numbness. He is in between pain management doctors with a new appointment upcoming.
He states that his family doctor has been providing him with his chronic pain medications. He has an appointment with his family doctor in 2 days for refills but he states that the prescriptions ran out. He has been on Lyrica but took the first
dose and slept much of the day. He is a single father and cannot function with feeling of fatigue. Patient was seen in conjunction with the PA student. I have reviewed and agree with the history and treatment plan presented. On my independent
physical exam, patient is awake, alert, and oriented x3, moderate acute distress. Heart is regular rate and rhythm. Lungs are clear to auscultation bilaterally without wheezes rales or rhonchi.
05/01/2024 0533 AM: Patient resting comfortably, minimal acute distress. Patient up and ambulating around the room. Patient ready for discharge. Patient has an appointment on the with a pain management doctor. Patient states he does not
agree with his pain management doctors treatment plan so he plans on firing him. He has a second pain management doctors appointment on the which he states he will keep. Patient being discharged in improved condition.
Discharge Plan
Departure
Patient Disposition: Home (Routine Discharge)
Date of Disposition: 05/01/24
Time of Disposition: 05:34
Patient with high blood pressure during this ER visit?: Yes
Condition: Good
Discharge Problem:
Muscle spasm, Neck pain
Instructions: Muscle Strain (DC), Chronic Neck Pain (DC), BLOOD PRESSURE
Prescriptions:
New
cyclobenzaprine 10 mg Tablet
10 mg PO TIDPRN PRN (Reason: muscle spasm) Qty: 12 0RF
diclofenac sodium 75 mg tablet,delayed release (DR/EC)
75 mg PO BID Qty: 10 0RF
No Action
diazepam [Valium] 5 mg Tablet
5 mg PO TID
oxycodone 20 mg Tablet
20 mg PO Q6H PRN (Reason: pain)
multivitamin Tablet
1 tab PO DAILY
cyanocobalamin (vitamin B-12) 1,000 mcg Tablet
1,000 mcg PO Q48H
[facility] - Next open appointment
Activity Restrictions/Additional Instructions:
It was a pleasure meeting you and taking part in your care. We hope for your continued healing and wellness.
Please read discharge instructions in their entirety. However, they are for general education and may not describe your exact diagnosis at discharge. Information on your ER visit and medical conditions were discussed with you along with appropriate
follow up information...
If indicated, please take your medications as instructed and indicated on discharge paperwork.
Please schedule a follow up appointment as directed. Call to schedule an appointment
Please return to the emergency department with ANY change in, persisting, or worsening of symptoms. If any of your symptoms do not improve, or persist, or become more severe within 6-12 hours, please return to the emergency department for further
care.
Please return to the emergency department if you develop a headache, neck pain/stiffness, fever greater than 100.4F, chest pain, shortness of breath, persistent nausea, vomiting, slurred speech, difficulty walking, numbness/tingling, weakness, signs
of infection or any other symptoms that are worrisome to you.
If you have any questions or concerns please do not hesitate to call the Hospital at
Interventions
Interventions:
*Risk Screen - Suicide Last Done: 05/01/24 03:15
*General Assessment Last Done: 05/01/24 03:15
*Neglect/Abuse Screening Last Done: 05/01/24 03:15
ED- Fall Risk Assessment Last Done: 05/01/24 03:23
*ED COVID-19 Vaccine History Last Done: 05/01/24 03:27
*Nursing Disposition Last Done: 05/01/24 05:40
ED-Musculoskeletal Assessment Last Done: 05/01/24 03:23
Discharge Date and Time
Print Language: BRITISH
[2024-05-01 03:21] VITALS: BP 151/101
[2024-05-01 03:22] VITALS: BMI 23.5
[2024-05-01] MEDS: DECADRON 10 MG PO (04:24)
[2024-05-01] MEDS: VALIUM 5 MG PO (04:29)
[2024-05-01 04:31] VITALS: BP 142/96
[2024-05-01] MEDS: ROXICODONE 20 MG PO (05:11)
== END 2024-05-01 05:40 | disposition home or self-care (01) ==
LOC: EMR 03:13
PROVIDERS: EMERGENCY PHYSICIAN Student in an Organized Health Care Education/Training Program; FAMILY PHYSICIAN Family Medicine
DX: M62.838 Other muscle spasm (principal); G89.29 Other chronic pain; M54.2 Cervicalgia; F17.290 Nicotine dependence, other tobacco product, uncomplicated; F32.9 Major depressive disorder, single episode, unspecified
CPT/HCPCS: 99282

== ENCOUNTER → 2024-05-20 16:33 | Outpatient (REF) | payer MEDICARE, SELFPAY | LOC: PAVMRI 16:33 | PROVIDERS: ATTENDING PHYSICIAN Family Medicine | DX: M48.02 Spinal stenosis, cervical region (principal) | CPT/HCPCS: 72141 ==

== ENCOUNTER 2024-07-23 12:09 | Emergency (ER) | payer MEDICARE, SELFPAY ==
[2024-07-23 12:27] VITALS: BP 153/114
--- NOTE | 2024-07-23 12:37 | ED.GENMED ---
ED Provider Triage
<Lanie Apodaca MANAGER GAMING - Last Filed: 07/23/24 12:49>
-
Patient seen by provider in Triage?: Seen in Triage
Attestation: A medical screening examination has been initiated by a qualified medical provider. Based on the assessment performed at this time, it has been determined that an emergent medical condition may exist and the patient has been informed
that further medical evaluation and possible additional diagnostic testing may be needed.
HPI: 44-year-old male states for past 2 days has had room spinning dizziness, worse with moving his head, along with stabbing pains in the bottom of both feet and ankles.
GENERAL: Alert , in no apparent distress
EYE: No visual abnormalities.
NECK: Trachea midline
ENT: No visible abnormalities.
LUNGS: No acute respiratory distress
NEUROLOGICAL: Alert and oriented
SKIN: Skin intact. No visible changes.
MUSCULOSKELETAL: Moving extremities normally
PSYCH: Normal and appropriate interaction.
This is a medical evaluation conducted in person to initiate diagnostic evaluation and provide initial therapeutics. Please see further documentation by the treating clinician.
History of Present Illness
<Lanie Apodaca MANAGER GAMING - Last Filed: 07/23/24 12:49>
General
Chief Complaint: Dizziness
Time Seen by Provider: 07/23/24 15:32
<Ignacia Martínez PA-C - Last Filed: 07/23/24 18:01>
General
Source: patient
Exam Limitations: none
Nursing documentation reviewed up to this point in time: agreed with
History of Present Illness
History of Present Illness:
44 y/o M
chronic pain, cervical radiculopathy, chroncic headaches
here with a few weeks of acute on woresning symptoms
posterior neck pain, and headache that wraps up to top of head along with intermittent shooting pains in arms and legs
pt has had these pains chroniclaly
had cervial fusion c3-c6 previously 2022
he has had occaisonal epidural injections to help with chronic pain
doesn't tolerate gabapentin or lyrica
on oxycodone 15 mg and is due for it
has been here with very similar symptoms previously
last had MRI in 04/2024 with pretty stable minimal DDD in upper c spine; the fusion looked ok
he has not had any new injury
no sudden worsening of symptoms today but felt that he hsould get checked
already plugged into pain management an dortho spine
Past History
<Lanie Apodaca, MANAGER GAMING - Last Filed: 07/23/24 12:49>
Past History
ED Past Medical History: Hyperthyroidism, Psychiatric (Major depressive disorder for which he takes no medications), Other (Chronic neck pain, patient states she has had cervical stenosis and herniations) and Other (Recently diagnosed B12 deficiency)
ED Past Surgical History: Other ( partial amputation of the finger on his hand , Hernia repair)
Social History
Tobacco: Vaping
Alcohol: None (lives with his parents and his 3 children)
Drug: Former user and Marijuana
Personal: Single
Living: with family
Employment: Not employed (applying for disability)
Family History
Family History: Negative Diabetes or Hypertension
Review of Systems
<Ignacia Martínez PA-C - Last Filed: 07/23/24 18:01>
Review of Systems
Allergies reviewed?: Yes
All Other Systems: Not applicable
Phy Exam
<Ignacia Martínez PA-C - Last Filed: 07/23/24 18:01>
Physical Exam
Physical Exam:
GENERAL: Alert , in no apparent distress, comfortable at rest
HEAD: NCAT
NECK: no midline tenderness, active ROM intact, no paraspinal muscle tenderness;
CARDIAC: Regular rate and rhythm, no edema
LUNGS: Clear breath sounds bilaterally, no acute respiratory distress, no wheezes/rales/rhonchi
ABDOMEN: Soft, without focal tenderness, no r/g, no cvat, normal bowel sounds, nondistended
NEUROLOGICAL: Alert and oriented, no focal neuro deficits, CN intact, 5/5 strength, sensation intact,
SKIN: Warm and dry,
MUSCULOSKELETAL:
Back: No midline tenderness, no swelling
negative straight leg raise Bilaterally
PSYCH: Normal and appropriate interaction.
Course
<Lanie Apodaca, MANAGER GAMING - Last Filed: 07/23/24 12:49>
Orders/Labs/Results
Orders:
Orders
07/23/24 12:31
Electrocardiogram (*1) Urgent
Reason for Study: Vertigo / Dizzy
07/23/24 12:32
EKG- Treatment ONCE
07/23/24 12:37
Complete Blood Count/With Diff Urgent
Comprehensive Metabolic Panel Urgent
07/23/24 16:09
Dexamethasone Sod Phosphate [Decadron] 10 mg IV NOW STA
Diphenhydramine [Benadryl] 25 mg IV NOW STA
Ketorolac [Toradol] 15 mg IV NOW STA
Prochlorperazine [Compazine] 10 mg IV NOW STA
Abnormal Lab Results
07/23/24
12:37
Chloride 97 L mmol/L
(98-107)
Glucose 107 H mg/dl
(70-99)
ALT 70 H U/L
(0-50)
07/23/24 12:37
07/23/24 12:37
Vital Signs
Initial and Last Documented VS:
Initial Vital Signs
Temp Pulse Resp BP Pulse Ox
36.9 C 106 16 153/114 100
07/23/24 12:27 07/23/24 12:27 07/23/24 12:27 07/23/24 12:27 07/23/24 12:27
Last Documented Vital Signs
Temp Pulse Resp BP Pulse Ox
36.9 C 86 18 147/94 99
07/23/24 17:40 07/23/24 17:40 07/23/24 17:40 07/23/24 17:40 07/23/24 17:40
<Ignacia Martínez PA-C - Last Filed: 07/23/24 18:01>
Orders/Labs/Results
Orders:
Orders
07/23/24 12:31
Electrocardiogram (*1) Urgent
Reason for Study: Vertigo / Dizzy
07/23/24 12:32
EKG- Treatment ONCE
07/23/24 12:37
Complete Blood Count/With Diff Urgent
Comprehensive Metabolic Panel Urgent
07/23/24 16:09
Dexamethasone Sod Phosphate [Decadron] 10 mg IV NOW STA
Diphenhydramine [Benadryl] 25 mg IV NOW STA
Ketorolac [Toradol] 15 mg IV NOW STA
Prochlorperazine [Compazine] 10 mg IV NOW STA
Abnormal Lab Results
07/23/24
12:37
Chloride 97 L mmol/L
(98-107)
Glucose 107 H mg/dl
(70-99)
ALT 70 H U/L
(0-50)
07/23/24 12:37
07/23/24 12:37
Vital Signs
Initial and Last Documented VS:
Initial Vital Signs
Temp Pulse Resp BP Pulse Ox
36.9 C 106 16 153/114 100
07/23/24 12:27 07/23/24 12:27 07/23/24 12:27 07/23/24 12:27 07/23/24 12:27
Last Documented Vital Signs
Temp Pulse Resp BP Pulse Ox
36.9 C 86 18 147/94 99
07/23/24 17:40 07/23/24 17:40 07/23/24 17:40 07/23/24 17:40 07/23/24 17:40
<Ignacia Martínez PA-C - Last Filed: 07/23/24 18:01>
MDM/Problems Addressed
Differential Diagnosis Includes:
cervicla raiduculaopathy, migraine, chornic pain, PMR,
MDM/Problems Addressed:
44 y/o M
chornic neck pain and headache, chronic radiculopathy
here without red flag symptoms
chronic radicular pains in arms and legs
worsening the past 3 weeks with headache, posterior thqat sounds like tension headache
has had similar headaches in the past which improved with compazine
no weakness, sudden worst headache of life, vomiting, fever
neuro is grossly intact
pt uhungry, wanted to eat
no signs cauda equina
has had relief wth migraine cocktail previously
given iv toradol, compazine, benaderyl and headache improved
d/c home
medrol dose hubert
<Ignacia Martínez PA-C - Last Filed: 07/23/24 18:01>
*Critical Care Note
Total Time (30-74mins, 75-104mins- exclusive of procedures): Not Applicable
ED Attending Note
<Lanie Apodaca MANAGER GAMING - Last Filed: 07/23/24 12:49>
-
Portions of this chart may have been created with voice recognition software.� Occasional wrong word or��sound alike� substitutions may have occurred due to the inherent limitations of voice recognition software.
Discharge Plan
Departure
Patient Disposition: Home (Routine Discharge)
Date of Disposition: 07/23/24
Time of Disposition: 17:38
Patient with high blood pressure during this ER visit?: Yes
Condition: Fair
Discharge Problem:
acute on chronic pain, Cervical radiculopathy
Instructions: Radiculopathy of the neck and back (including sciatica) - Discharge instructions, BLOOD PRESSURE
Prescriptions:
New
methylprednisolone [Medrol (Hubert)] 4 mg tablets,dose pack
See Rx Instructions .ROUTE .COMPLEX Qty: 21 0RF
Rx Instructions:
for 6 days
No Action
diazepam [Valium] 5 mg Tablet
5 mg PO TID
oxycodone 20 mg Tablet
20 mg PO Q6H PRN (Reason: pain)
multivitamin Tablet
1 tab PO DAILY
cyanocobalamin (vitamin B-12) 1,000 mcg Tablet
1,000 mcg PO Q48H
cyclobenzaprine 10 mg Tablet
10 mg PO TIDPRN PRN (Reason: muscle spasm) Qty: 12 0RF
diclofenac sodium 75 mg tablet,delayed release (DR/EC)
75 mg PO BID Qty: 10 0RF
Referrals:
UNKNOWN - PT DOES,NOT KNOW [Unknown Provider] -
Activity Restrictions/Additional Instructions:
CONTINUE YOUR PAIN MEDICATIONS PRESCRIBED
START MEDROL DOSE HUBERT TOMORROW AND TAKE PRESCRIBED
RETURN FO RANY CONCERNS: FEVER, WEAKNESS, SEVERE SUDDEN WORST HEADACHE OF LIFE OR ANY CONCERNS
Interventions
Interventions:
*Risk Screen - Suicide Last Done: 07/23/24 12:27
*General Assessment Last Done: 07/23/24 17:53
*Neglect/Abuse Screening Last Done: 07/23/24 12:31
ED- Fall Risk Assessment Last Done: 07/23/24 14:48
*ED COVID-19 Vaccine History Last Done: 07/23/24 12:31
*Nursing Disposition Last Done: 07/23/24 17:53
ED- Neurological Assessment Last Done: 07/23/24 14:47
ED Swallowing Screen Last Done: 07/23/24 14:47
Discharge Date and Time
Print Language: TONGAN
[2024-07-23 12:45] LABS: % Basophils 0.3 % (0-2); % Eosinophils 0.3 % (0-6); % Immature Granulocytes 0.2 % (0-0.5); % Lymphocytes 31.9 % (20.5-51.1); % Monocytes 7.9 % (1.7-9.3); % Neutrophils 59.4 % (42.2-75.2); Absolute Monocytes 0.5 10^3/uL (0.1-0.6); Absolute Neutrophils 3.7 10^3/uL (1.4-6.5); Hematocrit 44.4 % (39.0-52.0); Hemoglobin 15.2 g/dL (13.0-18.0); Mean Corp Hgb Conc. 34.2 g/dL (33.0-37.0); Mean Corpuscular Hgb 30.6 pg (27.0-31.0); Mean Corpuscular Volume 89.5 fL (80.0-94.0); Mean Platelet Volume 10.3 fL (7.4-10.4); Nucleated Red Blood Cells % 0 % (-); Platelet Count 236 10^3/uL (130-400); Red Blood Cell Count 4.96 10^6/uL (4.70-6.10); Red Cell Dist. Width 13.1 % (11.5-14.5); White Blood Cell Count 6.2 10^3/uL (4.8-10.8)
[2024-07-23 13:54] LABS: ALT (SGPT) 70 U/L (0-50); AST (SGOT) 34 U/L (17-59); Albumin 4.6 g/dl (3.5-5.0); Alkaline Phosphatase 98 U/L (38-126); Blood Urea Nitrogen 9 mg/dl (9-20); Calcium 9.8 mg/dl (8.4-10.2); Carbon Dioxide 29 mmol/L (22-30); Chloride 97 mmol/L (98-107); Glucose 107 mg/dl (70-99); Potassium 4.1 mmol/L (3.5-5.1); Sodium 135 mmol/L (135-145); Total Bilirubin 0.7 mg/dl (0.2-1.3); Total Protein 7.5 g/dl (6.3-8.2); eGFR > 60.00
[2024-07-23 14:20] VITALS: BP 158/104
[2024-07-23] MEDS: DECADRON 10 MG IV (16:27)
[2024-07-23] MEDS: COMPAZINE 10 MG IV (16:27)
[2024-07-23] MEDS: TORADOL 15 MG IV (16:27)
[2024-07-23] MEDS: BENADRYL 25 MG IV (16:28)
[2024-07-23 17:40] VITALS: BP 147/94
== END 2024-07-23 17:57 | disposition home or self-care (01) ==
LOC: EMR 12:09
PROVIDERS: Emergency Medicine; EMERGENCY PHYSICIAN Emergency Medicine; FAMILY PHYSICIAN Family Medicine
DX: G89.29 Other chronic pain (principal); M54.12 Radiculopathy, cervical region; F17.290 Nicotine dependence, other tobacco product, uncomplicated
CPT/HCPCS: 99283; 96374; 96375; 80053; 85025; 93005

== ENCOUNTER → 2024-08-27 08:55 | Outpatient (REF) | payer MEDICARE, SELFPAY | LOC: PAVMRI 08:55 | PROVIDERS: ATTENDING PHYSICIAN Family Medicine | DX: G95.9 Disease of spinal cord, unspecified (principal) | CPT/HCPCS: 72156; A9575 ==

== ENCOUNTER 2024-09-02 19:14 | Emergency (ER) | payer MEDICARE, SELFPAY ==
[2024-09-02 19:15] VITALS: BP 151/119; BMI 22.2
--- NOTE | 2024-09-02 19:26 | ED.GENMED ---
History of Present Illness
General
Chief Complaint: Musculo-Skeletal Complaint
Source: patient
Exam Limitations: none
Time Seen by Provider: 09/02/24 19:26
History of Present Illness
History of Present Illness:
44-year-old male complaining of upper posterior neck pain to the base of his skull with lightheadedness. Started 2 to 3 days ago.. Feels somewhat spasm-like. History of chronic mid neck pain however this feels somewhat different. No thunderclap
headache. No nausea or vomiting no other neurologic symptoms. No bowel or bladder issues. No fever or chills. No chest pain or shortness of breath
Past History
Past History
ED Past Medical History: Hyperthyroidism, Psychiatric (Major depressive disorder for which he takes no medications), Other (Chronic neck pain, patient states she has had cervical stenosis and herniations) and Other (Recently diagnosed B12 deficiency)
ED Past Surgical History: Other ( partial amputation of the finger on his hand , Hernia repair)
Social History
Tobacco: Vaping
Alcohol: None (lives with his parents and his 3 children)
Drug: Former user and Marijuana
Personal: Single
Living: with family
Employment: Not employed (applying for disability)
Family History
Family History: Negative Diabetes or Hypertension
Review of Systems
Review of Systems
All Other Systems: Not applicable
Constitutional: Denies fever or chills
Neurological: Denies weakness or numbness
Phy Exam
Physical Exam
Physical Exam:
GENERAL: Alert and oriented in no apparent distress. Pleasant but mildly anxious
EYE: Orbits normal.
NECK: Supple, no carotid bruit.
ENT: Pharynx without erythema
CARDIAC: Regular rate and rhythm without any obvious murmurs.
LUNGS: Clear breath sounds,normal
ABDOMEN: Soft, without focal tenderness or distention
NEUROLOGICAL: Alert and oriented , cranial nerves II through XII intact. Speech normal. [id number] normal. No drift. Lower extremity strength normal. Light touch intact.
SKIN: Warm and dry, no rash or lesion, no discoloration, skin intact.
MUSCULOSKELETAL: No edema,no deformity.Good color. No posterior neck swelling. Some decrease in motion that is chronic.
PSYCH: Normal and appropriate interaction.
Course
Orders/Labs/Results
Orders:
Orders
09/02/24 19:20
EKG [Electrocardiogram (*1)] Urgent
Reason for Study: Vertigo / Dizzy
09/02/24 19:21
EKG- Treatment ONCE
09/02/24 19:39
IV Insert/Care/Rem.- Treatment PRN
0.9% Sodium Chloride 500 ml [Nss] 500 ml IV BOLUS
Ketorolac [Toradol] 15 mg IV NOW STA
diazePAM [Valium Injection] 2 mg IV NOW STA
09/02/24 19:40
CT Head W/o Iv Contrast Urgent
Comment:
Reason For Exam: Posterior headache
CT Neck Angio W/wo Iv Contrast Urgent
Comment:
Reason For Exam: Posterior headache with lightheadedness
09/02/24 20:00
Basic Metabolic Panel Urgent
Complete Blood Count/With Diff Urgent
09/02/24 22:53
Diazepam [Valium] 5 mg PO NOW STA
Abnormal Lab Results
09/02/24
20:00
MPV 11.4 H fL
(7.4-10.4)
Chloride 96 L mmol/L
(98-107)
BUN 7 L mg/dl
(9-20)
Glucose 113 H mg/dl
(70-99)
09/02/24 20:00
09/02/24 20:00
Vital Signs
Initial and Last Documented VS:
Initial Vital Signs
Temp Pulse Resp BP Pulse Ox
98.1 F 106 16 151/119 99
09/02/24 19:15 09/02/24 19:15 09/02/24 19:15 09/02/24 19:15 09/02/24 19:15
Last Documented Vital Signs
Temp Pulse Resp BP Pulse Ox
98.1 F 80 17 136/97 100
09/02/24 19:15 09/02/24 23:00 09/02/24 23:00 09/02/24 21:24 09/02/24 22:00
MDM/Problems Addressed
Differential Diagnosis Includes:
Patient had a cervical MRI with and without contrast 6 days ago that was unremarkable for acute changes. Chronic C5-C6 severe foraminal issues. Do not feel this is an acute orthopedic issue. Neurologically intact. With some lightheadedness and
upper posterior neck pain will evaluate for vascular etiology although unlikely. Symptomatic treatment.
*Pulse Oximetry
Patient hypoxic: no
*EKG
Interpreted by ED Provider?: Yes
Interpretation: normal
Comparison EKG: no changes
Heart Rate: 88
Rate: normal
Rhythm: sinus
[place]: normal axis
Interval: normal interval
QRS Pattern: normal QRS
Ischemia: no ischemia
*Critical Care Note
Total Time (30-74mins, 75-104mins- exclusive of procedures): Not Applicable
Data Reviewed
Review of Other/Old Records Reveals: Labs, Records and Testing
Update Note
Update Note:
No serious etiology for patient's symptoms. Head CT negative. CT neck with no acute findings. Medically stable. Neurologically stable. Clinically nontoxic. Will discharge to follow-up
ED Attending Note
-
Portions of this chart may have been created with voice recognition software.� Occasional wrong word or��sound alike� substitutions may have occurred due to the inherent limitations of voice recognition software.
Discharge Plan
Departure
Patient Disposition: Home (Routine Discharge)
Date of Disposition: 09/02/24
Time of Disposition: 22:53
Patient with high blood pressure during this ER visit?: Yes
Discharge Problem:
Upper neck pain, History of cervical fusion
Instructions: BLOOD PRESSURE
Prescriptions:
No Action
diazepam [Valium] 5 mg Tablet
5 mg PO TID
oxycodone 20 mg Tablet
20 mg PO Q6H PRN (Reason: pain)
multivitamin Tablet
1 tab PO DAILY
cyanocobalamin (vitamin B-12) 1,000 mcg Tablet
1,000 mcg PO Q48H
cyclobenzaprine 10 mg Tablet
10 mg PO TIDPRN PRN (Reason: muscle spasm) Qty: 12 0RF
diclofenac sodium 75 mg tablet,delayed release (DR/EC)
75 mg PO BID Qty: 10 0RF
methylprednisolone [Medrol (Hubert)] 4 mg tablets,dose pack
See Rx Instructions .ROUTE .COMPLEX Qty: 21 0RF
Rx Instructions:
for 6 days
Referrals:
Jose Tompkins, DO [Family Provider] - Follow up in 2-3 days
Activity Restrictions/Additional Instructions:
Continue your current treatments
Follow-up closely with your primary physician
Return immediately with increasing pain increasing headache any new or unusual neurologic symptoms fever etc.
Interventions
Interventions:
*Risk Screen - Suicide Last Done: 09/02/24 19:15
*General Assessment Last Done: 09/02/24 19:15
*Neglect/Abuse Screening Last Done: 09/02/24 19:15
*ED- Fall Risk Assessment Last Done: 09/02/24 19:15
*ED COVID-19 Vaccine History Last Done: 09/02/24 19:15
*Nursing Disposition Last Done: 09/02/24 23:08
ED-Musculoskeletal Assessment Last Done: 09/02/24 22:28
Discharge Date and Time
Discharge Date/Time: 09/02/24 23:11
Print Language: DANISH
[2024-09-02 20:09] LABS: % Basophils 0.4 % (0-2); % Eosinophils 0.6 % (0-6); % Immature Granulocytes 0.4 % (0-0.5); % Lymphocytes 33.1 % (20.5-51.1); % Monocytes 8.2 % (1.7-9.3); % Neutrophils 57.3 % (42.2-75.2); Absolute Lymphocytes 1.7 10^3/uL (1.2-3.4); Absolute Monocytes 0.4 10^3/uL (0.1-0.6); Absolute Neutrophils 2.9 10^3/uL (1.4-6.5); Hemoglobin 15.4 g/dL (13.0-18.0); Mean Corpuscular Hgb 30.6 pg (27.0-31.0); Mean Corpuscular Volume 87.3 fL (80.0-94.0); Mean Platelet Volume 11.4 fL (7.4-10.4); Nucleated Red Blood Cells % 0 % (-); Platelet Count 245 10^3/uL (130-400); Red Blood Cell Count 5.04 10^6/uL (4.70-6.10); Red Cell Dist. Width 12.7 % (11.5-14.5)
[2024-09-02] MEDS: NSS 500 IV (20:12)
[2024-09-02] MEDS: VALIUM INJECTION 2 MG IV (20:17)
[2024-09-02] MEDS: TORADOL 15 MG IV (20:17)
[2024-09-02 20:21] VITALS: BP 140/113
[2024-09-02 20:24] LABS: Blood Urea Nitrogen 7 mg/dl (9-20); Carbon Dioxide 27 mmol/L (22-30); Chloride 96 mmol/L (98-107); Estimated Creatinine Clearance 109 ml/min; Glucose 113 mg/dl (70-99); Potassium 4.4 mmol/L (3.5-5.1); Sodium 136 mmol/L (135-145); eGFR > 60.00
[2024-09-02 21:24] VITALS: BP 136/97
[2024-09-02] MEDS: VALIUM 5 MG PO (23:03)
== END 2024-09-02 23:11 | disposition home or self-care (01) ==
LOC: EMR 19:14
PROVIDERS: EMERGENCY PHYSICIAN Emergency Medicine; FAMILY PHYSICIAN Family Medicine
DX: M54.2 Cervicalgia (principal); R42 Dizziness and giddiness; Z98.1 Arthrodesis status; F17.290 Nicotine dependence, other tobacco product, uncomplicated
CPT/HCPCS: 96374; 96375; 96361; 99284; 70450; 70498; 80048; 85025; 93005; Q9967

== ENCOUNTER 2024-11-27 12:46 | Emergency (ER) | payer MEDICARE, SELFPAY ==
[2024-11-27 12:54] VITALS: BP 133/96
[2024-11-27 14:13] VITALS: BP 140/96
[2024-11-27 14:59] VITALS: BMI 24.6
[2024-11-27 15:00] VITALS: BP 147/104
[2024-11-27 15:01] VITALS: BP 141/98
--- NOTE | 2024-11-27 15:05 | ED.GENMED ---
History of Present Illness
General
Chief Complaint: Musculo-Skeletal Complaint
Source: patient
Exam Limitations: none
Time Seen by Provider: 11/27/24 14:39
Nursing documentation reviewed up to this point in time: agreed with
History of Present Illness
History of Present Illness:
The patient is a 44-year-old male who presents to the ER for evaluation. Patient reports he is having numbness and tingling throughout his entire face pins and needle sensation to bilateral legs and left foot. This has been going on for the past
several days so he has had intermittent episodes of this in the past. Sometimes he feels dizzy. He does have chronic neck pain he has a fusion C3-C6 done in 2022 and is followed at pain management for that. He is on Valium and oxycodone. He
denies any recent injury fever chills or rash. Denies any bony or joint swelling. No chest pain or shortness of breath
Past History
Past History
ED Past Medical History: Hyperthyroidism, Psychiatric (Major depressive disorder for which he takes no medications), Other (Chronic neck pain, patient states she has had cervical stenosis and herniations) and Other (Recently diagnosed B12 deficiency)
ED Past Surgical History: Other ( partial amputation of the finger on his hand , Hernia repair)
Social History
Tobacco: Vaping
Alcohol: None (lives with his parents and his 3 children)
Drug: Former user and Marijuana
Personal: Single
Living: with family
Employment: Not employed (applying for disability)
Family History
Family History: Negative Diabetes or Hypertension
Review of Systems
Review of Systems
Allergies reviewed?: Yes
All Other Systems: ROS reviewed and negative except as documented in HPI and ROS
Constitutional: Reports no symptoms
Respiratory: Reports no symptoms
Cardiac: Reports no symptoms
ABD/GI: Reports no symptoms
: Reports no symptoms
Musculoskeletal: Reports neck pain (Chronic neck pain muscle spasm)
Skin: Reports no symptoms
Neurological: Reports other (Numbness tingling sensation throughout)
Phy Exam
General Physical Exam
General Presentation: no apparent distress
General age: appears stated age
General Skin: warm and dry
General Habitus: normal
General Mental: alert
General Hydration: appears well hydrated
Eye Exam
Eye Exam: PERRL
Eye Exam General: PERRL: bilateral and EOM intact: bilateral
Pupil Exam: Bilateral: round and reactive
Cardiovascular Exam
Cardiovascular Exam: regular rate/rhythm, no murmur and normal peripheral pulses
Pulmonary Exam
Pulmonary Exam: lungs clear and no respiratory distress
Neurological Exam
Neurological Exam: alert, oriented x3, no motor deficits, no sensory deficits, speech normal and other (No sensory deficits on exam bilateral upper lower extremities; with equal strength)
Musculoskeletal Exam
Musculoskeletal Exam: full ROM
Skin Exam
Skin Exam: normal color and warm/dry
Psychiatric Exam
Psychiatric Exam: normal mood/affect
Course
Orders/Labs/Results
Orders:
Orders
11/27/24 12:48
Electrocardiogram (*1) Urgent
Reason for Study: Vertigo / Dizzy
EKG- Treatment ONCE
11/27/24 15:04
CT Head W/o Iv Contrast Urgent
Comment:
Reason For Exam: numbness/tingling
11/27/24 15:16
Complete Blood Count/With Diff Urgent
Comprehensive Metabolic Panel Urgent
Lyme Progressive Urgent
11/27/24 16:37
Diazepam [Valium] 5 mg PO NOW STA
Abnormal Lab Results
11/27/24
15:16
MPV 11.3 H fL
(7.4-10.4)
Carbon Dioxide 31 H mmol/L
(22-30)
BUN 7 L mg/dl
(9-20)
Glucose 103 H mg/dl
(70-99)
ALT 59 H U/L
(0-50)
11/27/24 15:16
11/27/24 15:16
Vital Signs
Initial and Last Documented VS:
Initial Vital Signs
Temp Pulse Resp BP Pulse Ox
98.7 F 82 18 133/96 98
11/27/24 12:54 11/27/24 12:54 11/27/24 12:54 11/27/24 12:54 11/27/24 12:54
Last Documented Vital Signs
Temp Pulse Resp BP Pulse Ox
98.5 F 73 18 148/97 99
11/27/24 17:01 11/27/24 17:01 11/27/24 17:01 11/27/24 17:01 11/27/24 17:01
MDM/Problems Addressed
MDM/Problems Addressed:
Patient is a 44-year-old male who complains of numbness and tingling pins and needle sensation throughout his body including his whole face intermittent arms and legs. He has chronic neck pain and chronic muscle spasms. He presents awake alert
in no acute distress he denies any recent fever chills he has no focal neurological deficit on exam he does have a diagnosis of cervical radiculopathy previously.
CAT scan done and unremarkable. Labs unremarkable. No obvious joint pain or swelling other than chronic neck pain however Lyme test was checked. There is no acute cause of patient's symptoms here in the ER however there is no acute worrisome
findings on labs or CAT scan. Will DC with family doctor follow-up in addition we will also give neurology
*Radiology
Radiology exam reviewed: radiology read reviewed
*Pulse Oximetry
Patient hypoxic: no
*Critical Care Note
Total Time (30-74mins, 75-104mins- exclusive of procedures): Not Applicable
ED Attending Note
-
Portions of this chart may have been created with voice recognition software.� Occasional wrong word or��sound alike� substitutions may have occurred due to the inherent limitations of voice recognition software.
Discharge Plan
Departure
Patient Disposition: Home (Routine Discharge)
Date of Disposition: 11/27/24
Time of Disposition: 16:21
Patient with high blood pressure during this ER visit?: Yes
Condition: Fair
Covid-19: Not Applicable
Discharge Problem:
paresthesias
Instructions: BLOOD PRESSURE
Prescriptions:
No Action
diazepam [Valium] 5 mg Tablet
5 mg PO TID
oxycodone 20 mg Tablet
20 mg PO Q6H PRN (Reason: pain)
multivitamin Tablet
1 tab PO DAILY
cyanocobalamin (vitamin B-12) 1,000 mcg Tablet
1,000 mcg PO Q48H
cyclobenzaprine 10 mg Tablet
10 mg PO TIDPRN PRN (Reason: muscle spasm) Qty: 12 0RF
diclofenac sodium 75 mg tablet,delayed release (DR/EC)
75 mg PO BID Qty: 10 0RF
methylprednisolone [Medrol (Hubert)] 4 mg tablets,dose pack
See Rx Instructions .ROUTE .COMPLEX Qty: 21 0RF
Rx Instructions:
for 6 days
Referrals:
Jose Tompkins DO [Family Provider, Family Practice]
Ketan Devlin MD [Active, Neurology]
Activity Restrictions/Additional Instructions:
You were seen here today for numbness and tingling, paresthesias. Please follow-up closely with your family doctor as well as neurology. Your CAT scan was negative your labs are unremarkable and your Lyme test is currently pending .
your family doctor may follow-up with this as well.
Return if any worsening of symptoms.
Interventions
Interventions:
*Risk Screen - Suicide Last Done: 11/27/24 12:54
*General Assessment Last Done: 11/27/24 12:54
*Neglect/Abuse Screening Last Done: 11/27/24 12:54
*ED- Fall Risk Assessment Last Done: 11/27/24 12:54
*ED COVID-19 Vaccine History Last Done: 11/27/24 12:54
*Nursing Disposition Last Done: 11/27/24 17:01
ED-Musculoskeletal Assessment Last Done: 11/27/24 14:54
Discharge Date and Time
Discharge Date/Time: 11/27/24 17:03
Print Language: LATVIAN
[2024-11-27 15:33] LABS: % Basophils 0.6 % (0-2); % Eosinophils 0.6 % (0-6); % Lymphocytes 32.3 % (20.5-51.1); % Monocytes 8.6 % (1.7-9.3); % Neutrophils 57.9 % (42.2-75.2); Absolute Lymphocytes 1.6 10^3/uL (1.2-3.4); Absolute Monocytes 0.4 10^3/uL (0.1-0.6); Absolute Neutrophils 2.9 10^3/uL (1.4-6.5); Hematocrit 42.4 % (39.0-52.0); Hemoglobin 14.9 g/dL (13.0-18.0); Mean Corp Hgb Conc. 35.1 g/dL (33.0-37.0); Mean Corpuscular Hgb 30.4 pg (27.0-31.0); Mean Corpuscular Volume 86.5 fL (80.0-94.0); Mean Platelet Volume 11.3 fL (7.4-10.4); Nucleated Red Blood Cells % 0 % (-); Platelet Count 239 10^3/uL (130-400); Red Cell Dist. Width 11.9 % (11.5-14.5)
[2024-11-27 15:55] LABS: ALT (SGPT) 59 U/L (0-50); AST (SGOT) 37 U/L (17-59); Albumin 4.5 g/dl (3.5-5.0); Alkaline Phosphatase 88 U/L (38-126); Blood Urea Nitrogen 7 mg/dl (9-20); Calcium 9.8 mg/dl (8.4-10.2); Carbon Dioxide 31 mmol/L (22-30); Chloride 103 mmol/L (98-107); Estimated Creatinine Clearance 109 ml/min; Glucose 103 mg/dl (70-99); Potassium 4.2 mmol/L (3.5-5.1); Sodium 139 mmol/L (135-145); Total Bilirubin 0.5 mg/dl (0.2-1.3); Total Protein 7.4 g/dl (6.3-8.2); eGFR > 60.00
[2024-11-27 16:09] VITALS: BP 148/97
[2024-11-27] MEDS: VALIUM 5 MG PO (16:57)
[2024-11-27 17:01] VITALS: BP 148/97
[2024-11-28 16:08] LABS: Lyme Antibody Screen, EIA Negative (Negative)
== END 2024-11-27 17:03 | disposition home or self-care (01) ==
LOC: EMR 12:46
PROVIDERS: Nurse Practitioner; EMERGENCY PHYSICIAN Emergency Medicine; FAMILY PHYSICIAN Family Medicine
DX: R20.2 Paresthesia of skin (principal); R42 Dizziness and giddiness; G89.29 Other chronic pain; M54.2 Cervicalgia; F17.290 Nicotine dependence, other tobacco product, uncomplicated
CPT/HCPCS: 99284; 70450; 80053; 85025; 86618; 93005

== ENCOUNTER 2024-12-01 18:39 | Emergency (ER) | payer MEDICARE, SELFPAY ==
[2024-12-01 18:41] VITALS: BP 148/99
--- NOTE | 2024-12-01 19:31 | ED.GENMED ---
History of Present Illness
General
Chief Complaint: Musculo-Skeletal Complaint
Source: patient
Exam Limitations: none
Time Seen by Provider: 12/01/24 19:24
Nursing documentation reviewed up to this point in time: agreed with
History of Present Illness
History of Present Illness:
44-year-old male presents [facility] due to neck pain, numbness and tingling throughout body, ongoing for several months. States he ran out of his oxycodone and cannot see his pain management doctor until Monday.
Past History
Past History
ED Past Medical History: Hyperthyroidism, Psychiatric (Major depressive disorder for which he takes no medications), Other (Chronic neck pain, patient states she has had cervical stenosis and herniations) and Other (Recently diagnosed B12 deficiency)
ED Past Surgical History: Other ( partial amputation of the finger on his hand , Hernia repair)
Social History
Tobacco: Vaping
Alcohol: None (lives with his parents and his 3 children)
Drug: Former user and Marijuana
Personal: Single
Living: with family
Employment: Not employed (applying for disability)
Family History
Family History: Negative Diabetes or Hypertension
Review of Systems
Review of Systems
Allergies reviewed?: Yes
All Other Systems: Not applicable
Constitutional: Reports no symptoms
EENT: Reports no symptoms
Respiratory: Reports no symptoms
Cardiac: Reports no symptoms
ABD/GI: Reports no symptoms
: Reports no symptoms
Musculoskeletal: Reports neck pain
Skin: Reports no symptoms
Neurological: Reports numbness
Endocrine: Reports no symptoms
Hematologic/Lymphatic: Reports no symptoms
Psychiatric: Reports no symptoms
Phy Exam
Physical Exam
Physical Exam:
Physical Exam
General: no apparent distress, not acutely ill
Neck: supple. no meningeal signs. normal posterior pharynx
Heart: s1/s2 regular rate and rhythm, no murmur. equal radial
pulses.
HEENT: Pupils equal round reactive to light, EOMI
Lungs: no acute respiratory distress. clear bilaterally
Abdomen: normal bowel sounds. not tender. no CVAT
Neuro: alert and oriented. no focal neurological deficits cranial nerves II through XII intact
Skin: no rash
Psychiatric: well kept. interactive and cooperative
Extremities: no edema. no calf tenderness. negative homans. good distal pulses
Course
Orders/Labs/Results
Orders:
Orders
12/01/24 20:04
Ketorolac [Toradol] 15 mg IM NOW STA
Vital Signs
Initial and Last Documented VS:
Initial Vital Signs
Temp Pulse Resp BP Pulse Ox
97.8 F 107 16 148/99 100
12/01/24 18:41 12/01/24 18:41 12/01/24 18:41 12/01/24 18:41 12/01/24 18:41
Last Documented Vital Signs
Temp Pulse Resp BP Pulse Ox
97.8 F 107 16 148/99 100
12/01/24 18:41 12/01/24 18:41 12/01/24 18:41 12/01/24 18:41 12/01/24 18:41
MDM/Problems Addressed
Differential Diagnosis Includes:
Cervicalgia, electrolyte abnormality
MDM/Problems Addressed:
44-year-old male with neck pain and paresthesias. No acute findings on exam, reviewed recent evaluation, negative evaluation on Monday. Will treat with Toradol and discharge. Follow with primary care.
Chronic conditions affecting care: Other (Cervical fusion)
*Pulse Oximetry
Patient hypoxic: no
*Critical Care Note
Total Time (30-74mins, 75-104mins- exclusive of procedures): Not Applicable
Data Reviewed
Further Testing Considered But Not Given:
CT head and blood work not indicated
Patient Management
Social determinants of health affecting care: Living situation
Escalation/DeEscalation of care consider admission/obs:
Admit not indicated
ED Attending Note
-
Portions of this chart may have been created with voice recognition software.� Occasional wrong word or��sound alike� substitutions may have occurred due to the inherent limitations of voice recognition software.
Discharge Plan
Departure
Patient Disposition: Home (Routine Discharge)
Date of Disposition: 12/01/24
Time of Disposition: 20:07
Patient with high blood pressure during this ER visit?: Yes
Condition: Good
Discharge Problem:
Cervicalgia, Paresthesias
Instructions: Neck pain, Peripheral neuropathy, BLOOD PRESSURE
Prescriptions:
No Action
diazepam [Valium] 5 mg Tablet
5 mg PO TID
oxycodone 20 mg Tablet
20 mg PO Q6H PRN (Reason: pain)
multivitamin Tablet
1 tab PO DAILY
cyanocobalamin (vitamin B-12) 1,000 mcg Tablet
1,000 mcg PO Q48H
cyclobenzaprine 10 mg Tablet
10 mg PO TIDPRN PRN (Reason: muscle spasm) Qty: 12 0RF
diclofenac sodium 75 mg tablet,delayed release (DR/EC)
75 mg PO BID Qty: 10 0RF
methylprednisolone [Medrol (Hubert)] 4 mg tablets,dose pack
See Rx Instructions .ROUTE .COMPLEX Qty: 21 0RF
Rx Instructions:
for 6 days
Referrals:
UNKNOWN - PT DOES,NOT KNOW [Family Provider]
Activity Restrictions/Additional Instructions:
Follow-up with pain management. Return for any concerns.
Interventions
Interventions:
*Risk Screen - Suicide Last Done: 12/01/24 18:41
*Neglect/Abuse Screening Last Done: 12/01/24 18:41
*ED- Fall Risk Assessment Last Done: 12/01/24 19:13
*ED COVID-19 Vaccine History Last Done: 12/01/24 19:13
ED-Musculoskeletal Assessment Last Done: 12/01/24 19:13
Discharge Date and Time
Print Language: ARGENTINE
[2024-12-01] MEDS: TORADOL 15 MG IM (20:15)
== END 2024-12-01 20:35 | disposition home or self-care (01) ==
LOC: EMR 18:39
PROVIDERS: EMERGENCY PHYSICIAN Emergency Medicine
DX: M54.2 Cervicalgia (principal); R20.2 Paresthesia of skin; F17.290 Nicotine dependence, other tobacco product, uncomplicated
CPT/HCPCS: 99284; 96372

== ENCOUNTER 2024-12-25 13:01 | Emergency (ER) | payer MEDICARE, SELFPAY ==
[2024-12-25 13:03] VITALS: BP 142/100
[2024-12-25 14:08] VITALS: BP 135/99
--- NOTE | 2024-12-25 15:22 | ED.GENMED ---
History of Present Illness
General
Chief Complaint: Heart Rate Problem
Source: patient
Exam Limitations: none
Time Seen by Provider: 12/25/24 14:06
Nursing documentation reviewed up to this point in time: agreed with
History of Present Illness
History of Present Illness:
44-year-old male with history of chronic neck pain followed by PCP Dr. Tompkins in pain management Dr. Trevizo states at 1130 this morning he found 1 pill that someone gave him 'a while ago,' with a canine) on it that he thought was consistent with his
oxycodone 15 mg pills, he states he broke a piece off and took it and an hour later he felt his heart was racing, he felt lightheaded and 'off.'
During initial exam he states he is feeling better
Past History
Past History
ED Past Medical History: Hyperthyroidism, Psychiatric (Major depressive disorder for which he takes no medications), Other (Chronic neck pain, patient states she has had cervical stenosis and herniations) and Other (Recently diagnosed B12 deficiency)
ED Past Surgical History: Other ( partial amputation of the finger on his hand , Hernia repair, cervical spine surgery 01/2023)
Social History
Tobacco: Vaping
Alcohol: None (lives with his parents and his 3 children)
Drug: Former user and Marijuana
Personal: Single
Living: with family
Employment: Disabled (applying for disability)
Family History
Family History: Negative Diabetes or Hypertension
Review of Systems
Review of Systems
Allergies reviewed?: Yes
All Other Systems: ROS reviewed and negative except as documented in HPI and ROS
Respiratory: Denies trouble breathing
Cardiac: Denies chest pain
ABD/GI: Denies abdominal pain, nausea or vomiting
Musculoskeletal: Reports neck pain (chronic)
Skin: Reports no symptoms
Neurological: Reports no symptoms
Phy Exam
Physical Exam
Physical Exam:
GENERAL: No acute distress. A&Ox3.
CONSTITUTIONAL: Afebrile.
EYES: clear, conjunctivae normal
ENMT: moist mucus membranes, Pharynx nl
Neck: supple, mildly limited ROM
RESPIRATORY: Regular respirations, nonlabored, lungs clear.
CARDIOVASCULAR: Regular rate and rhythm, no murmurs, no rubs.
GI: Soft, nontender, normal BS
MUSCULOSKELETAL: Moves with ease. Well perfused.
SKIN: Warm, dry, pink
PSYCH: Normal mood and affect. Well kept, interactive and appropriate
NEUROLOGIC: Awake, alert and oriented. No focal neurological deficits
Course
Orders/Labs/Results
Orders:
Orders
12/25/24 13:02
Electrocardiogram (*1) Urgent
Reason for Study: Palpitations
EKG- Treatment ONCE
Vital Signs
Initial and Last Documented VS:
Initial Vital Signs
Temp Pulse Resp BP Pulse Ox
99.0 F 98 15 142/100 100
12/25/24 13:03 12/25/24 13:03 12/25/24 13:03 12/25/24 13:03 12/25/24 13:03
Last Documented Vital Signs
Temp Pulse Resp BP Pulse Ox
99.0 F 107 14 135/99 100
12/25/24 13:03 12/25/24 15:15 12/25/24 15:15 12/25/24 14:08 12/25/24 15:27
MDM/Problems Addressed
Differential Diagnosis Includes:
Possible side effect of medication
MDM/Problems Addressed:
44-year-old male with history of chronic neck pain followed by PCP Dr. Tompkins in pain management Dr. Trevizo states at 1130 this morning he found 1 pill that someone gave him 'a while ago,' with a canine) on it that he thought was consistent with his
oxycodone 15 mg pills, he states he broke a piece off and took it and an hour later he felt his heart was racing, he felt lightheaded and 'off.'
During initial exam he states he is feeling better
3:19 PM:
No significant adverse reaction.
Patient took a minuscule amount of medication, became anxious and symptoms were most likely from his anxiety and are completely resolved at this time
BP 132/88
HR 97
Stable for discharge
Patient has appointment with his family doctor tomorrow and with his pain management doctor next week
*Pulse Oximetry
SaO2: 100
Oxygen Mode of Delivery: Room air
Patient hypoxic: not evaluated
*Critical Care Note
Total Time (30-74mins, 75-104mins- exclusive of procedures): Not Applicable
ED Attending Note
-
Portions of this chart may have been created with voice recognition software.� Occasional wrong word or��sound alike� substitutions may have occurred due to the inherent limitations of voice recognition software.
Discharge Plan
Departure
Patient Disposition: Home (Routine Discharge)
Date of Disposition: 12/25/24
Time of Disposition: 15:15
Patient with high blood pressure during this ER visit?: No
Condition: Good
Discharge Problem:
Accidental drug ingestion
Prescriptions:
No Action
diazepam [Valium] 5 mg Tablet
5 mg PO TID
oxycodone 20 mg Tablet
20 mg PO Q6H PRN (Reason: pain)
multivitamin Tablet
1 tab PO DAILY
cyanocobalamin (vitamin B-12) 1,000 mcg Tablet
1,000 mcg PO Q48H
cyclobenzaprine 10 mg Tablet
10 mg PO TIDPRN PRN (Reason: muscle spasm) Qty: 12 0RF
diclofenac sodium 75 mg tablet,delayed release (DR/EC)
75 mg PO BID Qty: 10 0RF
methylprednisolone [Medrol (Hubert)] 4 mg tablets,dose pack
See Rx Instructions .ROUTE .COMPLEX Qty: 21 0RF
Rx Instructions:
for 6 days
Referrals:
Jose Tompkins DO [Family Provider, Family Practice] - Keep scheduled appt
Activity Restrictions/Additional Instructions:
As we discussed, do not take any medication that is not clearly labeled
Keep your appointment with Dr. Tompkins tomorrow and with your pain management doctor on 01/01.
Interventions
Interventions:
*Risk Screen - Suicide Last Done: 12/25/24 13:03
*General Assessment Last Done: 12/25/24 13:03
*Neglect/Abuse Screening Last Done: 12/25/24 13:03
*ED COVID-19 Vaccine History Last Done: 12/25/24 13:03
*Nursing Disposition Last Done: 12/25/24 15:30
ED- Cardiac Assessment Last Done: 12/25/24 13:30
ED- Pulmonary Assessment Last Done: 12/25/24 13:30
Discharge Date and Time
Discharge Date/Time: 12/25/24 15:30
Print Language: PASHTO
== END 2024-12-25 15:30 | disposition home or self-care (01) ==
LOC: EMR 13:01
PROVIDERS: EMERGENCY PHYSICIAN Student in an Organized Health Care Education/Training Program; FAMILY PHYSICIAN Family Medicine
DX: T50.901A Poisoning by unspecified drugs, medicaments and biological substances, accidental (unintentional), initial encounter (principal); R42 Dizziness and giddiness; X58.XXXA Exposure to other specified factors, initial encounter; F17.290 Nicotine dependence, other tobacco product, uncomplicated; G89.29 Other chronic pain
CPT/HCPCS: 99283; 93005